=== PATIENT | female | born 1935 | race Caucasian/White ===

== ENCOUNTER 2020-03-04 04:13 | Inpatient (IN) | payer OTHER ==
[2020-03-04 04:50] LABS: BASO % 0.4 % (0-2.0); EOS % 0.2 % (0-4.5); HEMOGLOBIN 11.3 GM/dL (10.7-15.3); MCH 28.8 pg (25.7-33.7); MCHC 31.5 g/dl (32.0-36.0); MEAN CELL VOLUME 91.4 fl (80-96); MEAN PLT VOLUME 8.5 fl (7.5-11.1); MONO % 5.4 % (3.8-10.2); PLATELET COUNT 463 K/MM3 (134-434); RBC 3.94 M/mm3 (3.60-5.2); RDW 16.1 % (11.6-15.6); WHITE BLOOD COUNT 16.9 K/mm3 (4.0-10.0)
[2020-03-04 05:00] LABS: INR 1.1 (0.83-1.09); PROTHROMBIN TIME (PATIENT) 13.5 SEC (9.7-13.0)
[2020-03-04 05:03] LABS: ACTIVATED PTT 31.6 SECONDS (25.2-36.5)
[2020-03-04 05:06] LABS: POTASSIUM 5.5 mmol/L (3.5-5.1)
[2020-03-04 05:07] LABS: VENOUS BASE EXCESS -0.6 mmol/L (-2-2); VENOUS O2 SATURATION 62.6 % (70-80)
[2020-03-04 05:08] LABS: CALCIUM 9.5 mg/dL (8.5-10.1)
[2020-03-04 05:09] LABS: ALBUMIN 2.7 g/dl (3.4-5.0); BLOOD UREA NITROGEN 44.2 mg/dL (7-18)
[2020-03-04 05:10] LABS: VENOUS PCO2 88.7 mmHg (38-52); VENOUS PH 7.154 (7.310-7.410)
[2020-03-04 05:12] LABS: CREATININE 0.6 mg/dL (0.55-1.3)
[2020-03-04 05:13] LABS: BILIRUBIN,TOTAL 0.4 mg/dL (0.2-1)
[2020-03-04 05:14] LABS: TOT PROT 7.6 g/dl (6.4-8.2)
[2020-03-04] MEDS ORDERED: PIPERACILLIN/TAZOB 3.375 GM 3.375 GM in DEXTROSE 5%-WATER - 50 ML IVPB ONE (05:47)
[2020-03-04] MEDS ORDERED: PIPERACILLIN/TAZOB 3.375 GM 3.375 GM/50 ML BAG IVPB ONE (05:58)
[2020-03-04] MEDS: LACTATED RINGERS SOLUTION 1000 ML INFUS.BAG IV ONE ×2 (08:08→09:31)
[2020-03-04] MEDS ORDERED: SODIUM CHLORIDE 1,742 ML IV ONE (08:12)
[2020-03-04] MEDS ORDERED: VANCOMYCIN HCL 1,250 MG in DEXTROSE 5%-WATER - 250 ML IVPB ONE (11:33)
[2020-03-04] MEDS ORDERED: MIDODRINE HCL 5 MG TABLET PO SCH (14:00)
[2020-03-04 14:44] LABS: EPI CELLS 10 /uL (0-25.1); HYALINE CASTS 0 /uL (0-3.1); PH,URINE 8.5 (5.0-8.0); URINE APPEARANCE CLOUDY; URINE BILIRUBIN NEGATIVE (NEGATIVE); URINE COLOR YELLOW; URINE GLUCOSE (UA) NEGATIVE (NEGATIVE); URINE KETONE TRACE (NEGATIVE); URINE LEUK ESTERASE NEGATIVE (NEGATIVE); URINE NITRITE POSITIVE (NEGATIVE); URINE PROTEIN 1+ (NEGATIVE); URINE RBC 5 /uL (0-23.9); URINE WBC 29 /uL (0-25.8)
[2020-03-04] MEDS: INSULIN SLIDING SCALE (NOVOLOG) 1 VIAL SQ SCH ×2 (15:35→18:57)
[2020-03-04 15:45] LABS: URINE BACTERIA 174.9 /uL (0-1359)
[2020-03-04] MEDS ORDERED: ALBUTEROL SO4 2.5/IPRATROPIUM 0.5 INH SOL 3 ML VIAL.NEB. NEB ONE ×3 (15:52→23:09)
[2020-03-04] MEDS ORDERED: METOPROLOL TARTRATE 25 MG TABLET (FP) ONE ×2 (15:52→23:10)
[2020-03-04] MEDS: clonazePAM 0.5 MG TABLET PO SCH (16:00)
[2020-03-04] MEDS: METOPROLOL TARTRATE 25 MG TABLET (FP) PO SCH ×2 (16:00→23:35)
[2020-03-04] MEDS: ALBUTEROL SO4 2.5/IPRATROPIUM 0.5 INH SOL 3 ML VIAL.NEB. NEB SCH ×3 (16:04→23:35)
[2020-03-04] MEDS ORDERED: clonazePAM 0.5 MG TABLET ONE (16:54)
[2020-03-04] MEDS ORDERED: PIPERACILLIN/TAZOB 2.25 GM 2.25 GM/50 ML BAG IVPB ONE ×2 (16:55→16:57)
[2020-03-04] MEDS: PIPERACILLIN/TAZOB 2.25 GM 2.25 GM in DEXTROSE 5%-WATER - 50 ML IVPB SCH ×2 (17:00→18:36)
[2020-03-04] MEDS: MIDODRINE HCL 5 MG TABLET PO SCH (18:36)
[2020-03-04] MEDS ORDERED: CEFEPIME 2 GM/100 ML BAG IVPB ONE (18:37)
[2020-03-04] MEDS: CEFEPIME 2 GM in DEXTROSE 5%-WATER 2 GM/100 ML BAG IVPB SCH (18:57)
[2020-03-04] MEDS ORDERED: QUEtiapine FUMARATE 25 MG TABLET PO SCH (22:00)
[2020-03-04] MEDS ORDERED: QUEtiapine FUMARATE 25 MG TABLET ONE (23:10)
[2020-03-04] MEDS: DOCUSATE NA 100 MG/10 ML UNIT-DOSE CUPS PO SCH (23:35)
[2020-03-05] MEDS: INSULIN SLIDING SCALE (NOVOLOG) 1 VIAL SQ SCH ×7 (01:18→21:40)
[2020-03-05] MEDS ORDERED: PIPERACILLIN/TAZOB 2.25 GM 2.25 GM/50 ML BAG IVPB ONE ×3 (02:25→13:26)
[2020-03-05] MEDS ORDERED: CEFEPIME 2 GM/100 ML BAG IVPB ONE (02:25)
[2020-03-05] MEDS: CEFEPIME 2 GM in DEXTROSE 5%-WATER 2 GM/100 ML BAG IVPB SCH ×3 (03:08→17:49)
[2020-03-05] MEDS: PIPERACILLIN/TAZOB 2.25 GM 2.25 GM in DEXTROSE 5%-WATER - 50 ML IVPB SCH ×3 (05:13→17:48)
[2020-03-05 05:36] LABS: HEMATOCRIT 25.9 % (32.4-45.2); HEMOGLOBIN 8.4 GM/dL (10.7-15.3); MCHC 32.5 g/dl (32.0-36.0); MEAN CELL VOLUME 89.3 fl (80-96); MEAN PLT VOLUME 8.4 fl (7.5-11.1); PLATELET COUNT 359 K/MM3 (134-434); RDW 15.7 % (11.6-15.6); WHITE BLOOD COUNT 9.8 K/mm3 (4.0-10.0)
[2020-03-05 05:55] LABS: POTASSIUM 4.4 mmol/L (3.5-5.1)
[2020-03-05 05:59] LABS: ALBUMIN 2.1 g/dl (3.4-5.0); BLOOD UREA NITROGEN 35.1 mg/dL (7-18); CALCIUM 8.9 mg/dL (8.5-10.1); MAGNESIUM 2.2 mg/dL (1.8-2.4)
[2020-03-05 06:02] LABS: CREATININE 0.6 mg/dL (0.55-1.3)
[2020-03-05 06:04] LABS: BILIRUBIN,TOTAL 0.6 mg/dL (0.2-1); TOT PROT 5.8 g/dl (6.4-8.2)
[2020-03-05] MEDS ORDERED: METOPROLOL TARTRATE 25 MG TABLET (FP) ONE (06:41)
[2020-03-05] MEDS: METOPROLOL TARTRATE 25 MG TABLET (FP) PO SCH ×2 (07:23→13:00)
[2020-03-05] MEDS ORDERED: ENOXAPARIN NA (PORCINE) 40 MG/0.4 ML DISP.SYRIN SQ ONE (08:29)
[2020-03-05] MEDS ORDERED: clonazePAM 0.5 MG TABLET ONE (08:59)
[2020-03-05] MEDS: MIDODRINE HCL 5 MG TABLET PO SCH ×3 (09:09→17:48)
[2020-03-05] MEDS: ALBUTEROL SO4 2.5/IPRATROPIUM 0.5 INH SOL 3 ML VIAL.NEB. NEB SCH ×3 (09:09→19:59)
[2020-03-05] MEDS: ENOXAPARIN NA (PORCINE) 40 MG/0.4 ML DISP.SYRIN SQ SCH (09:09)
[2020-03-05] MEDS: clonazePAM 0.5 MG TABLET PO SCH (09:09)
[2020-03-05] MEDS: DOCUSATE NA 100 MG/10 ML UNIT-DOSE CUPS PO SCH (09:09)
[2020-03-05] MEDS ORDERED: ALBUTEROL SO4 2.5/IPRATROPIUM 0.5 INH SOL 3 ML VIAL.NEB. NEB ONE ×2 (10:58→13:26)
[2020-03-05] MEDS ORDERED: ALBUTEROL SO4 2.5/IPRATROPIUM 0.5 INH SOL 3 ML VIAL.NEB. NEB SCH (16:27)
[2020-03-05] MEDS ORDERED: PIPERACILLIN/TAZOBACTAM 2.25 GM VIAL IVPB ONE (17:02)
[2020-03-05] MEDS ORDERED: DEXTROSE 5%-WATER - 50 ML IVPB ONE (17:02)
[2020-03-05] MEDS: NYSTATIN POWDER 100,000 UNITS/GM - 15 GM TOPICAL POWDER TP SCH ×2 (17:47→21:40)
[2020-03-05] MEDS ORDERED: MIDODRINE HCL 5 MG TABLET PEG SCH (20:55)
[2020-03-05] MEDS: METOPROLOL TARTRATE 25 MG TABLET (FP) PEG SCH (21:40)
[2020-03-05] MEDS: DOCUSATE NA 100 MG/10 ML UNIT-DOSE CUPS PEG SCH (21:40)
[2020-03-05] MEDS: QUEtiapine FUMARATE 25 MG TABLET PEG SCH (21:40)
[2020-03-06] MEDS ORDERED: DEXTROSE 5%-WATER - 50 ML IVPB ONE ×3 (01:10→17:50)
[2020-03-06] MEDS ORDERED: PIPERACILLIN/TAZOBACTAM 2.25 GM VIAL IVPB ONE ×3 (01:10→17:50)
[2020-03-06] MEDS: PIPERACILLIN/TAZOB 2.25 GM 2.25 GM in DEXTROSE 5%-WATER - 50 ML IVPB SCH ×3 (01:21→17:58)
[2020-03-06] MEDS: INSULIN SLIDING SCALE (NOVOLOG) 1 VIAL SQ SCH ×6 (03:02→22:15)
[2020-03-06] MEDS: METOPROLOL TARTRATE 25 MG TABLET (FP) PEG SCH (06:24)
[2020-03-06] MEDS: ALBUTEROL SO4 2.5/IPRATROPIUM 0.5 INH SOL 3 ML VIAL.NEB. NEB SCH ×4 (07:30→19:49)
[2020-03-06 09:10] LABS: HEMOGLOBIN 8.6 GM/dL (10.7-15.3); MCH 29.4 pg (25.7-33.7); MCHC 33.1 g/dl (32.0-36.0); MEAN CELL VOLUME 88.9 fl (80-96); MEAN PLT VOLUME 8.3 fl (7.5-11.1); PLATELET COUNT 403 K/MM3 (134-434); RBC 2.93 M/mm3 (3.60-5.2); WHITE BLOOD COUNT 10.8 K/mm3 (4.0-10.0)
[2020-03-06 09:27] LABS: POTASSIUM 4.1 mmol/L (3.5-5.1)
[2020-03-06 09:28] LABS: BLOOD UREA NITROGEN 40.7 mg/dL (7-18); CALCIUM 8.9 mg/dL (8.5-10.1)
[2020-03-06 09:32] LABS: CREATININE 0.8 mg/dL (0.55-1.3)
[2020-03-06] MEDS: clonazePAM 0.5 MG TABLET PEG SCH (09:53)
[2020-03-06] MEDS: DOCUSATE NA 100 MG/10 ML UNIT-DOSE CUPS PEG SCH ×2 (09:53→22:06)
[2020-03-06] MEDS: ENOXAPARIN NA (PORCINE) 40 MG/0.4 ML DISP.SYRIN SQ SCH (09:54)
[2020-03-06] MEDS ORDERED: INSULIN (NOVOLOG) ASPART 100 UNITS/ML 10ML VIAL ONE (10:04)
[2020-03-06] MEDS: NYSTATIN POWDER 100,000 UNITS/GM - 15 GM TOPICAL POWDER TP SCH ×2 (10:08→22:09)
[2020-03-06] MEDS ORDERED: ACETAMINOPHEN 325 MG TABLET (FP) PO ONE (18:03)
[2020-03-06] MEDS: QUEtiapine FUMARATE 25 MG TABLET PEG SCH (22:07)
[2020-03-07] MEDS ORDERED: DEXTROSE 5%-WATER - 50 ML IVPB ONE ×3 (01:34→17:00)
[2020-03-07] MEDS ORDERED: PIPERACILLIN/TAZOBACTAM 2.25 GM VIAL IVPB ONE ×3 (01:34→17:00)
[2020-03-07] MEDS: PIPERACILLIN/TAZOB 2.25 GM 2.25 GM in DEXTROSE 5%-WATER - 50 ML IVPB SCH ×3 (01:50→17:43)
[2020-03-07] MEDS: INSULIN SLIDING SCALE (NOVOLOG) 1 VIAL SQ SCH (06:38)
[2020-03-07] MEDS: ALBUTEROL SO4 2.5/IPRATROPIUM 0.5 INH SOL 3 ML VIAL.NEB. NEB SCH ×4 (08:17→20:51)
[2020-03-07 09:20] LABS: BASO % 0.5 % (0-2.0); EOS % 2.9 % (0-4.5); HEMATOCRIT 24.9 % (32.4-45.2); HEMOGLOBIN 8.1 GM/dL (10.7-15.3); LYMPH % 13.6 % (8-40); MCH 29.2 pg (25.7-33.7); MCHC 32.5 g/dl (32.0-36.0); MEAN PLT VOLUME 8.3 fl (7.5-11.1); MONO % 6.3 % (3.8-10.2); NEUT % 76.7 % (42.8-82.8); PLATELET COUNT 396 K/MM3 (134-434); RBC 2.77 M/mm3 (3.60-5.2); RDW 16.1 % (11.6-15.6); WHITE BLOOD COUNT 7.7 K/mm3 (4.0-10.0)
[2020-03-07 09:32] LABS: POTASSIUM 4.7 mmol/L (3.5-5.1)
[2020-03-07 09:39] LABS: BLOOD UREA NITROGEN 40.7 mg/dL (7-18)
[2020-03-07 09:42] LABS: CREATININE 0.7 mg/dL (0.55-1.3)
[2020-03-07 09:43] LABS: BILIRUBIN,TOTAL 0.4 mg/dL (0.2-1); TOT PROT 5.7 g/dl (6.4-8.2)
[2020-03-07] MEDS: clonazePAM 0.5 MG TABLET PEG SCH (10:08)
[2020-03-07] MEDS: ENOXAPARIN NA (PORCINE) 40 MG/0.4 ML DISP.SYRIN SQ SCH (10:09)
[2020-03-07] MEDS: DOCUSATE NA 100 MG/10 ML UNIT-DOSE CUPS PEG SCH ×2 (10:09→21:01)
[2020-03-07] MEDS: NYSTATIN POWDER 100,000 UNITS/GM - 15 GM TOPICAL POWDER TP SCH ×2 (10:48→21:02)
[2020-03-07] MEDS ORDERED: FERRIC CARBOXYMALTOSE 750 MG in SODIUM CHLORIDE 250 ML IVPB ONE (11:30)
[2020-03-07] MEDS ORDERED: ACETAMINOPHEN 650 MG/20.3 ML ORAL SOLUTION (CUPS) GT PRN (12:06)
[2020-03-07] MEDS: metFORMIN HCL 500 MG TABLET (FP) GT SCH (16:25)
[2020-03-07 18:47] LABS: BF WBC & OTHER NUCLEATED CELLS 1517 /mm3
[2020-03-07 19:44] LABS: BODY FLUID MACROPHAGES 18 %; BODY FLUID MONOCYTE 5 %
[2020-03-07] MEDS: QUEtiapine FUMARATE 25 MG TABLET PEG SCH (21:02)
[2020-03-08] MEDS ORDERED: PIPERACILLIN/TAZOBACTAM 2.25 GM VIAL IVPB ONE ×3 (01:19→17:15)
[2020-03-08] MEDS ORDERED: DEXTROSE 5%-WATER - 50 ML IVPB ONE ×3 (01:20→17:15)
[2020-03-08] MEDS: PIPERACILLIN/TAZOB 2.25 GM 2.25 GM in DEXTROSE 5%-WATER - 50 ML IVPB SCH ×3 (01:21→17:17)
[2020-03-08] MEDS: metFORMIN HCL 500 MG TABLET (FP) GT SCH ×2 (06:13→17:17)
[2020-03-08] MEDS: ALBUTEROL SO4 2.5/IPRATROPIUM 0.5 INH SOL 3 ML VIAL.NEB. NEB SCH ×4 (07:54→20:47)
[2020-03-08] MEDS: ENOXAPARIN NA (PORCINE) 40 MG/0.4 ML DISP.SYRIN SQ SCH (10:11)
[2020-03-08] MEDS: clonazePAM 0.5 MG TABLET PEG SCH (10:11)
[2020-03-08] MEDS: DOCUSATE NA 100 MG/10 ML UNIT-DOSE CUPS PEG SCH ×2 (10:11→21:45)
[2020-03-08] MEDS: NYSTATIN POWDER 100,000 UNITS/GM - 15 GM TOPICAL POWDER TP SCH ×2 (10:12→21:45)
[2020-03-08 10:15] LABS: BASO % 0.4 % (0-2.0); EOS % 2.4 % (0-4.5); HEMATOCRIT 28.4 % (32.4-45.2); HEMOGLOBIN 9.3 GM/dL (10.7-15.3); LYMPH % 11.6 % (8-40); MCH 29.3 pg (25.7-33.7); MCHC 32.6 g/dl (32.0-36.0); MEAN CELL VOLUME 89.8 fl (80-96); MEAN PLT VOLUME 8.4 fl (7.5-11.1); MONO % 5.3 % (3.8-10.2); NEUT % 80.3 % (42.8-82.8); PLATELET COUNT 461 K/MM3 (134-434); RBC 3.17 M/mm3 (3.60-5.2); RDW 16.3 % (11.6-15.6); WHITE BLOOD COUNT 9.6 K/mm3 (4.0-10.0)
[2020-03-08 11:00] LABS: POTASSIUM 4.8 mmol/L (3.5-5.1)
[2020-03-08 11:26] LABS: BLOOD UREA NITROGEN 32.3 mg/dL (7-18); CALCIUM 9.4 mg/dL (8.5-10.1)
[2020-03-08 11:27] LABS: ALBUMIN 2.3 g/dl (3.4-5.0)
[2020-03-08 11:30] LABS: CREATININE 0.6 mg/dL (0.55-1.3)
[2020-03-08 11:31] LABS: BILIRUBIN,TOTAL 0.3 mg/dL (0.2-1); TOT PROT 6.6 g/dl (6.4-8.2)
[2020-03-08] MEDS ORDERED: PT OWN MED DRAWER 7, Y5N ONE (12:48)
[2020-03-08] MEDS: QUEtiapine FUMARATE 25 MG TABLET PEG SCH (21:45)
[2020-03-09] MEDS ORDERED: DEXTROSE 5%-WATER - 50 ML IVPB ONE ×3 (01:09→18:01)
[2020-03-09] MEDS ORDERED: PIPERACILLIN/TAZOBACTAM 2.25 GM VIAL IVPB ONE ×3 (01:09→18:00)
[2020-03-09] MEDS: PIPERACILLIN/TAZOB 2.25 GM 2.25 GM in DEXTROSE 5%-WATER - 50 ML IVPB SCH ×3 (01:14→18:23)
[2020-03-09] MEDS: metFORMIN HCL 500 MG TABLET (FP) GT SCH ×2 (06:03→18:23)
[2020-03-09] MEDS: ALBUTEROL SO4 2.5/IPRATROPIUM 0.5 INH SOL 3 ML VIAL.NEB. NEB SCH ×4 (08:04→20:34)
[2020-03-09 09:08] LABS: POTASSIUM 5.2 mmol/L (3.5-5.1)
[2020-03-09 09:15] LABS: ALBUMIN 2.2 g/dl (3.4-5.0); BASO % 1.2 % (0-2.0); BLOOD UREA NITROGEN 30.3 mg/dL (7-18); CALCIUM 9.1 mg/dL (8.5-10.1); EOS % 2.1 % (0-4.5); HEMATOCRIT 26.5 % (32.4-45.2); HEMOGLOBIN 8.7 GM/dL (10.7-15.3); LYMPH % 10.5 % (8-40); MCH 29.1 pg (25.7-33.7); MCHC 32.6 g/dl (32.0-36.0); MEAN CELL VOLUME 89.2 fl (80-96); MEAN PLT VOLUME 8.9 fl (7.5-11.1); NEUT % 80.2 % (42.8-82.8); PLATELET COUNT 481 K/MM3 (134-434); RBC 2.97 M/mm3 (3.60-5.2); RDW 16.1 % (11.6-15.6); WHITE BLOOD COUNT 11.3 K/mm3 (4.0-10.0)
[2020-03-09 09:19] LABS: CREATININE 0.7 mg/dL (0.55-1.3)
[2020-03-09 09:20] LABS: TOT PROT 6.2 g/dl (6.4-8.2)
[2020-03-09 09:23] LABS: BILIRUBIN,TOTAL 0.2 mg/dL (0.2-1)
[2020-03-09] MEDS: ENOXAPARIN NA (PORCINE) 40 MG/0.4 ML DISP.SYRIN SQ SCH (09:40)
[2020-03-09] MEDS: DOCUSATE NA 100 MG/10 ML UNIT-DOSE CUPS PEG SCH ×2 (09:40→23:18)
[2020-03-09] MEDS: clonazePAM 0.5 MG TABLET PEG SCH (09:40)
[2020-03-09] MEDS: NYSTATIN POWDER 100,000 UNITS/GM - 15 GM TOPICAL POWDER TP SCH ×2 (09:41→23:19)
[2020-03-09] MEDS: QUEtiapine FUMARATE 25 MG TABLET PEG SCH (23:18)
[2020-03-10] MEDS ORDERED: PIPERACILLIN/TAZOBACTAM 2.25 GM VIAL IVPB ONE ×3 (02:18→16:36)
[2020-03-10] MEDS: PIPERACILLIN/TAZOB 2.25 GM 2.25 GM in DEXTROSE 5%-WATER - 50 ML IVPB SCH ×3 (02:19→17:17)
[2020-03-10] MEDS ORDERED: DEXTROSE 5%-WATER - 50 ML IVPB ONE ×3 (02:19→16:36)
[2020-03-10] MEDS: metFORMIN HCL 500 MG TABLET (FP) GT SCH ×2 (06:04→17:17)
[2020-03-10] MEDS: ALBUTEROL SO4 2.5/IPRATROPIUM 0.5 INH SOL 3 ML VIAL.NEB. NEB SCH ×3 (08:25→15:14)
[2020-03-10 08:58] LABS: BASO % 0.6 % (0-2.0); HEMATOCRIT 25.6 % (32.4-45.2); HEMOGLOBIN 8.7 GM/dL (10.7-15.3); LYMPH % 10.2 % (8-40); MCH 29.8 pg (25.7-33.7); MCHC 33.8 g/dl (32.0-36.0); MEAN CELL VOLUME 88.1 fl (80-96); MEAN PLT VOLUME 8.4 fl (7.5-11.1); NEUT % 80.2 % (42.8-82.8); PLATELET COUNT 518 K/MM3 (134-434); RBC 2.91 M/mm3 (3.60-5.2); RDW 15.8 % (11.6-15.6); WHITE BLOOD COUNT 10.4 K/mm3 (4.0-10.0)
[2020-03-10 09:22] LABS: POTASSIUM 5.1 mmol/L (3.5-5.1)
[2020-03-10 09:30] LABS: CALCIUM 9.1 mg/dL (8.5-10.1)
[2020-03-10 09:31] LABS: ALBUMIN 2.2 g/dl (3.4-5.0); BLOOD UREA NITROGEN 32.3 mg/dL (7-18)
[2020-03-10 09:33] LABS: BILIRUBIN,TOTAL 0.3 mg/dL (0.2-1); TOT PROT 5.9 g/dl (6.4-8.2)
[2020-03-10 09:34] LABS: CREATININE 0.7 mg/dL (0.55-1.3)
[2020-03-10] MEDS: ENOXAPARIN NA (PORCINE) 40 MG/0.4 ML DISP.SYRIN SQ SCH (11:48)
[2020-03-10] MEDS: clonazePAM 0.5 MG TABLET PEG SCH (11:48)
[2020-03-10] MEDS: DOCUSATE NA 100 MG/10 ML UNIT-DOSE CUPS PEG SCH ×2 (11:48→21:30)
[2020-03-10] MEDS: NYSTATIN POWDER 100,000 UNITS/GM - 15 GM TOPICAL POWDER TP SCH ×2 (11:49→21:30)
[2020-03-10 13:09] LABS: BODY FLUID ALBUMIN 1.9 g/dL (Not Estab.)
[2020-03-10] MEDS: QUEtiapine FUMARATE 25 MG TABLET PEG SCH (21:30)
[2020-03-11] MEDS ORDERED: PIPERACILLIN/TAZOBACTAM 2.25 GM VIAL IVPB ONE ×2 (01:06→08:31)
[2020-03-11] MEDS ORDERED: DEXTROSE 5%-WATER - 50 ML IVPB ONE ×3 (01:06→17:33)
[2020-03-11] MEDS: PIPERACILLIN/TAZOB 2.25 GM 2.25 GM in DEXTROSE 5%-WATER - 50 ML IVPB SCH ×2 (01:09→09:06)
[2020-03-11] MEDS: metFORMIN HCL 500 MG TABLET (FP) GT SCH ×2 (06:10→17:32)
[2020-03-11] MEDS: ENOXAPARIN NA (PORCINE) 40 MG/0.4 ML DISP.SYRIN SQ SCH (09:06)
[2020-03-11] MEDS: DOCUSATE NA 100 MG/10 ML UNIT-DOSE CUPS PEG SCH ×2 (09:06→21:39)
[2020-03-11] MEDS: clonazePAM 0.5 MG TABLET PEG SCH (09:07)
[2020-03-11] MEDS: NYSTATIN POWDER 100,000 UNITS/GM - 15 GM TOPICAL POWDER TP SCH ×2 (09:07→21:39)
[2020-03-11] MEDS ORDERED: PIPERACILLIN/TAZOBACTAM 3.375 GM VIAL IVPB ONE (17:33)
[2020-03-11] MEDS: PIPERACILLIN/TAZOB 3.375 GM 3.375 GM in DEXTROSE 5%-WATER - 50 ML IVPB SCH (17:33)
[2020-03-11] MEDS: QUEtiapine FUMARATE 25 MG TABLET PEG SCH (21:39)
[2020-03-12 01:08] LABS: BASO % 0.4 % (0-2.0); EOS % 0.5 % (0-4.5); HEMOGLOBIN 9.7 GM/dL (10.7-15.3); LYMPH % 7.6 % (8-40); MCH 28.8 pg (25.7-33.7); MCHC 32.4 g/dl (32.0-36.0); MEAN CELL VOLUME 88.7 fl (80-96); MEAN PLT VOLUME 8.5 fl (7.5-11.1); MONO % 4.5 % (3.8-10.2); PLATELET COUNT 626 K/MM3 (134-434); RBC 3.38 M/mm3 (3.60-5.2); RDW 16.3 % (11.6-15.6)
[2020-03-12 01:26] LABS: CHLORIDE 97 mmol/L (98-107); POTASSIUM 5.2 mmol/L (3.5-5.1); SODIUM 134 mmol/L (136-145)
[2020-03-12 01:28] LABS: ALBUMIN 2.4 g/dl (3.4-5.0); ANION GAP 9 MMOL/L (8-16); BLOOD UREA NITROGEN 34.5 mg/dL (7-18); CALCIUM 9.5 mg/dL (8.5-10.1); CO2 28 mmol/L (21-32)
[2020-03-12 01:29] LABS: GLUCOSE,RANDOM 295 mg/dL (74-106)
[2020-03-12 01:31] LABS: SGOT/AST 30 U/L (15-37); SGPT/ALT 56 U/L (13-61)
[2020-03-12 01:32] LABS: CREATININE 0.8 mg/dL (0.55-1.3)
[2020-03-12 01:33] LABS: BILIRUBIN,TOTAL 0.4 mg/dL (0.2-1); TOT PROT 6.9 g/dl (6.4-8.2)
[2020-03-12 01:39] LABS: ALK PHOS 210 U/L (45-117)
[2020-03-12] MEDS ORDERED: SODIUM CHLORIDE 500 ML IV STA ×2 (02:06→04:03)
[2020-03-12 02:12] LABS: ANISOCYTOSIS 2+; MACROCYTOSIS 0; PLATELET ESTIMATE INCREASED
[2020-03-12] MEDS: MUPIROCIN 2% TOPICAL OINTMENT FOR DECOLONIZATION NS SCH ×3 (02:48→22:14)
[2020-03-12] MEDS ORDERED: VANCOMYCIN 1 GRAM (PRE-DOCKED) 1,000 MG/250 ML BAG IVPB ONE (03:00)
[2020-03-12] MEDS ORDERED: DEXTROSE 5%-WATER - 50 ML IVPB ONE ×2 (03:02→09:36)
[2020-03-12] MEDS ORDERED: PIPERACILLIN/TAZOBACTAM 3.375 GM VIAL IVPB ONE ×2 (03:02→09:36)
[2020-03-12] MEDS: PIPERACILLIN/TAZOB 3.375 GM 3.375 GM in DEXTROSE 5%-WATER - 50 ML IVPB SCH ×3 (03:05→10:22)
[2020-03-12] MEDS ORDERED: SODIUM CHLORIDE 250 ML IV STA (05:09)
[2020-03-12] MEDS ORDERED: SODIUM CHLORIDE 1,000 ML IV SCH (05:45)
[2020-03-12 06:28] LABS: EPI CELLS 13 /uL (0-25.1); HYALINE CASTS 2 /uL (0-3.1); URINE APPEARANCE CLEAR; URINE BACTERIA 13 /uL (0-1359); URINE BILIRUBIN NEGATIVE (NEGATIVE); URINE COLOR YELLOW; URINE GLUCOSE (UA) 2+ (NEGATIVE); URINE KETONE NEGATIVE (NEGATIVE); URINE LEUK ESTERASE NEGATIVE (NEGATIVE); URINE NITRITE NEGATIVE (NEGATIVE); URINE PROTEIN 1+ (NEGATIVE); URINE RBC 13 /uL (0-23.9); URINE UROBILINOGEN 0.2 mg/dL (0.2-1.0); URINE WBC 3 /uL (0-25.8)
[2020-03-12] MEDS: NOREPINEPHRINE BITARTRATE 8,000 MCG/500 ML BAG IVPB SCH (06:28)
[2020-03-12] MEDS: ENOXAPARIN NA (PORCINE) 40 MG/0.4 ML DISP.SYRIN SQ SCH (10:22)
[2020-03-12] MEDS: clonazePAM 0.5 MG TABLET PEG SCH (10:23)
[2020-03-12] MEDS: DOCUSATE NA 100 MG/10 ML UNIT-DOSE CUPS PEG SCH ×2 (10:23→22:14)
[2020-03-12] MEDS: NYSTATIN POWDER 100,000 UNITS/GM - 15 GM TOPICAL POWDER TP SCH ×2 (10:43→22:14)
[2020-03-12] MEDS: MEROPENEM 1 GM in DEXTROSE 5%-WATER 100 ML IVPB SCH (16:43)
[2020-03-12] MEDS ORDERED: DEXTROSE 5%-WATER 100 ML IVPB ONE (16:45)
[2020-03-12] MEDS ORDERED: MEROPENEM 1 GM VIAL (RESTRICTED TO ID) IVPB ONE (16:45)
[2020-03-12] MEDS: CHLORHEXIDINE GLUCONATE 4% CLEANSER FOR DECOLONIZATION TP SCH (22:14)
[2020-03-12] MEDS: QUEtiapine FUMARATE 25 MG TABLET PEG SCH (22:15)
[2020-03-12] MEDS ORDERED: SODIUM CHLORIDE 0.9% 500 ML INFUS.BAG IV ONE (23:27)
[2020-03-13] MEDS ORDERED: SODIUM CHLORIDE 1,000 ML IV STA (01:09)
[2020-03-13] MEDS ORDERED: SODIUM CHLORIDE 1,000 ML IV SCH (01:10)
[2020-03-13] MEDS ORDERED: MEROPENEM 1 GM VIAL (RESTRICTED TO ID) IVPB ONE ×2 (05:28→13:53)
[2020-03-13] MEDS ORDERED: DEXTROSE 5%-WATER 100 ML IVPB ONE ×2 (05:28→13:53)
[2020-03-13] MEDS: MEROPENEM 1 GM in DEXTROSE 5%-WATER 100 ML IVPB SCH ×2 (05:31→16:11)
[2020-03-13] MEDS: NOREPINEPHRINE BITARTRATE 8,000 MCG/500 ML BAG IVPB SCH (05:32)
[2020-03-13] MEDS: VANCOMYCIN 1 GRAM (PRE-DOCKED) 1,000 MG/250 ML BAG IVPB SCH (05:40)
[2020-03-13] MEDS: ENOXAPARIN NA (PORCINE) 40 MG/0.4 ML DISP.SYRIN SQ SCH (10:37)
[2020-03-13] MEDS: MUPIROCIN 2% TOPICAL OINTMENT FOR DECOLONIZATION NS SCH ×2 (10:39→21:44)
[2020-03-13] MEDS: clonazePAM 0.5 MG TABLET PEG SCH (10:39)
[2020-03-13] MEDS: DOCUSATE NA 100 MG/10 ML UNIT-DOSE CUPS PEG SCH ×2 (10:39→21:45)
[2020-03-13] MEDS: NYSTATIN POWDER 100,000 UNITS/GM - 15 GM TOPICAL POWDER TP SCH ×2 (10:39→21:44)
[2020-03-13 11:59] LABS: BASO % 0.5 % (0-2.0); EOS % 1.9 % (0-4.5); HEMATOCRIT 25.7 % (32.4-45.2); HEMOGLOBIN 8.5 GM/dL (10.7-15.3); LYMPH % 7.8 % (8-40); MCH 29.4 pg (25.7-33.7); MCHC 33.1 g/dl (32.0-36.0); MEAN CELL VOLUME 88.6 fl (80-96); MEAN PLT VOLUME 7.8 fl (7.5-11.1); MONO % 8.3 % (3.8-10.2); NEUT % 81.5 % (42.8-82.8); PLATELET COUNT 488 K/MM3 (134-434); RDW 16.7 % (11.6-15.6); WHITE BLOOD COUNT 11.9 K/mm3 (4.0-10.0)
[2020-03-13 12:21] LABS: POTASSIUM 4.1 mmol/L (3.5-5.1)
[2020-03-13 12:22] LABS: CALCIUM 8.3 mg/dL (8.5-10.1)
[2020-03-13 12:23] LABS: ALBUMIN 1.9 g/dl (3.4-5.0); BLOOD UREA NITROGEN 20.2 mg/dL (7-18)
[2020-03-13 12:26] LABS: CREATININE 0.4 mg/dL (0.55-1.3); PHOSPHOROUS 2.3 mg/dL (2.5-4.9)
[2020-03-13 12:28] LABS: BILIRUBIN,TOTAL 0.3 mg/dL (0.2-1); TOT PROT 5.8 g/dl (6.4-8.2)
[2020-03-13] MEDS ORDERED: METOPROLOL TARTRATE 5 MG/5 ML VIAL IVPUSH ONE (14:57)
[2020-03-13] MEDS: METOPROLOL TARTRATE 25 MG TABLET (FP) PO SCH ×2 (16:19→21:45)
[2020-03-13] MEDS: ACETAMINOPHEN 650 MG/20.3 ML ORAL SOLUTION (CUPS) GT PRN (16:28)
[2020-03-13] MEDS: CHLORHEXIDINE GLUCONATE 4% CLEANSER FOR DECOLONIZATION TP SCH (21:44)
[2020-03-13] MEDS: QUEtiapine FUMARATE 25 MG TABLET PEG SCH (21:45)
[2020-03-14] MEDS ORDERED: DEXTROSE 5%-WATER 100 ML IVPB ONE ×2 (03:03→13:20)
[2020-03-14] MEDS ORDERED: MEROPENEM 1 GM VIAL (RESTRICTED TO ID) IVPB ONE ×2 (03:03→13:20)
[2020-03-14] MEDS: MEROPENEM 1 GM in DEXTROSE 5%-WATER 100 ML IVPB SCH ×2 (03:08→16:19)
[2020-03-14] MEDS: VANCOMYCIN 1 GRAM (PRE-DOCKED) 1,000 MG/250 ML BAG IVPB SCH (04:29)
[2020-03-14] MEDS: METOPROLOL TARTRATE 25 MG TABLET (FP) PO SCH (06:29)
[2020-03-14] MEDS: NYSTATIN POWDER 100,000 UNITS/GM - 15 GM TOPICAL POWDER TP SCH ×2 (10:17→21:59)
[2020-03-14] MEDS: MUPIROCIN 2% TOPICAL OINTMENT FOR DECOLONIZATION NS SCH ×2 (10:18→21:59)
[2020-03-14] MEDS: clonazePAM 0.5 MG TABLET PEG SCH (10:18)
[2020-03-14] MEDS: DOCUSATE NA 100 MG/10 ML UNIT-DOSE CUPS PEG SCH ×2 (10:20→21:59)
[2020-03-14] MEDS: ENOXAPARIN NA (PORCINE) 40 MG/0.4 ML DISP.SYRIN SQ SCH (10:20)
[2020-03-14] MEDS: ACETAMINOPHEN 650 MG/20.3 ML ORAL SOLUTION (CUPS) GT PRN ×2 (10:21→17:19)
[2020-03-14] MEDS: NOREPINEPHRINE BITARTRATE 8,000 MCG/500 ML BAG IVPB SCH (17:17)
[2020-03-14] MEDS: QUEtiapine FUMARATE 25 MG TABLET PEG SCH (21:59)
[2020-03-14] MEDS: CHLORHEXIDINE GLUCONATE 4% CLEANSER FOR DECOLONIZATION TP SCH (21:59)
[2020-03-15] MEDS ORDERED: MEROPENEM 1 GM VIAL (RESTRICTED TO ID) IVPB ONE ×2 (00:23→16:53)
[2020-03-15] MEDS ORDERED: DEXTROSE 5%-WATER 100 ML IVPB ONE ×2 (00:23→16:54)
[2020-03-15] MEDS: MEROPENEM 1 GM in DEXTROSE 5%-WATER 100 ML IVPB SCH ×2 (03:00→16:54)
[2020-03-15] MEDS: VANCOMYCIN 1 GRAM (PRE-DOCKED) 1,000 MG/250 ML BAG IVPB SCH (05:27)
[2020-03-15] MEDS: NOREPINEPHRINE BITARTRATE 8,000 MCG/500 ML BAG IVPB SCH (05:28)
[2020-03-15] MEDS: MUPIROCIN 2% TOPICAL OINTMENT FOR DECOLONIZATION NS SCH ×2 (10:47→23:35)
[2020-03-15] MEDS: DOCUSATE NA 100 MG/10 ML UNIT-DOSE CUPS PEG SCH ×2 (10:47→23:30)
[2020-03-15] MEDS: NYSTATIN POWDER 100,000 UNITS/GM - 15 GM TOPICAL POWDER TP SCH (10:47)
[2020-03-15] MEDS: ENOXAPARIN NA (PORCINE) 40 MG/0.4 ML DISP.SYRIN SQ SCH (10:48)
[2020-03-15] MEDS: clonazePAM 0.5 MG TABLET PEG SCH (10:48)
[2020-03-16] MEDS: QUEtiapine FUMARATE 25 MG TABLET PEG SCH ×2 (00:10→22:09)
[2020-03-16] MEDS ORDERED: MEROPENEM 1 GM VIAL (RESTRICTED TO ID) IVPB ONE ×2 (00:19→15:40)
[2020-03-16] MEDS ORDERED: DEXTROSE 5%-WATER 100 ML IVPB ONE ×2 (00:19→15:40)
[2020-03-16] MEDS: NYSTATIN POWDER 100,000 UNITS/GM - 15 GM TOPICAL POWDER TP SCH ×3 (01:18→22:10)
[2020-03-16] MEDS: CHLORHEXIDINE GLUCONATE 4% CLEANSER FOR DECOLONIZATION TP SCH (01:18)
[2020-03-16] MEDS: MEROPENEM 1 GM in DEXTROSE 5%-WATER 100 ML IVPB SCH ×2 (04:00→15:52)
[2020-03-16] MEDS: NOREPINEPHRINE BITARTRATE 8,000 MCG/500 ML BAG IVPB SCH (06:12)
[2020-03-16] MEDS: VANCOMYCIN 1 GRAM (PRE-DOCKED) 1,000 MG/250 ML BAG IVPB SCH (06:12)
[2020-03-16] MEDS ORDERED: NOREPINEPHRINE BITARTRATE 8,000 MCG/500 ML BAG IVPB SCH (06:47)
[2020-03-16] MEDS: DOCUSATE NA 100 MG/10 ML UNIT-DOSE CUPS PEG SCH ×2 (09:36→22:09)
[2020-03-16] MEDS: clonazePAM 0.5 MG TABLET PEG SCH (09:36)
[2020-03-16] MEDS: ENOXAPARIN NA (PORCINE) 40 MG/0.4 ML DISP.SYRIN SQ SCH (09:36)
[2020-03-16] MEDS ORDERED: MUPIROCIN 2% TOPICAL OINTMENT FOR DECOLONIZATION NS SCH (10:00)
[2020-03-16] MEDS ORDERED: CHLORHEXIDINE GLUCONATE 4% CLEANSER FOR DECOLONIZATION TP SCH (22:00)
[2020-03-17] MEDS ORDERED: MEROPENEM 1 GM VIAL (RESTRICTED TO ID) IVPB ONE ×2 (03:01→14:14)
[2020-03-17] MEDS ORDERED: DEXTROSE 5%-WATER 100 ML IVPB ONE ×2 (03:01→14:14)
[2020-03-17] MEDS: MEROPENEM 1 GM in DEXTROSE 5%-WATER 100 ML IVPB SCH ×2 (03:29→15:42)
[2020-03-17] MEDS ORDERED: VANCOMYCIN 1 GRAM (PRE-DOCKED) 1,000 MG/250 ML BAG IVPB SCH (05:00)
[2020-03-17] MEDS: clonazePAM 0.5 MG TABLET PEG SCH (09:55)
[2020-03-17] MEDS: DOCUSATE NA 100 MG/10 ML UNIT-DOSE CUPS PEG SCH ×2 (09:55→22:30)
[2020-03-17] MEDS: NYSTATIN POWDER 100,000 UNITS/GM - 15 GM TOPICAL POWDER TP SCH ×2 (09:56→22:30)
[2020-03-17] MEDS: ENOXAPARIN NA (PORCINE) 40 MG/0.4 ML DISP.SYRIN SQ SCH (09:56)
[2020-03-17] MEDS: QUEtiapine FUMARATE 25 MG TABLET PEG SCH (22:30)
[2020-03-18] MEDS ORDERED: MEROPENEM 1 GM VIAL (RESTRICTED TO ID) IVPB ONE ×2 (04:09→15:16)
[2020-03-18] MEDS ORDERED: DEXTROSE 5%-WATER 100 ML IVPB ONE ×2 (04:09→15:17)
[2020-03-18] MEDS: MEROPENEM 1 GM in DEXTROSE 5%-WATER 100 ML IVPB SCH ×2 (04:16→15:20)
[2020-03-18 08:30] LABS: POTASSIUM 5.1 mmol/L (3.5-5.1)
[2020-03-18 08:36] LABS: BLOOD UREA NITROGEN 32.5 mg/dL (7-18); CALCIUM 8.7 mg/dL (8.5-10.1)
[2020-03-18 08:40] LABS: CREATININE 0.5 mg/dL (0.55-1.3)
[2020-03-18 08:41] LABS: BILIRUBIN,TOTAL 0.7 mg/dL (0.2-1)
[2020-03-18 08:42] LABS: TOT PROT 5.8 g/dl (6.4-8.2)
[2020-03-18 08:52] LABS: BASO % 0.8 % (0-2.0); EOS % 2.8 % (0-4.5); HEMATOCRIT 27.7 % (32.4-45.2); HEMOGLOBIN 9.3 GM/dL (10.7-15.3); LYMPH % 12.1 % (8-40); MCH 29.9 pg (25.7-33.7); MCHC 33.5 g/dl (32.0-36.0); MEAN CELL VOLUME 89.3 fl (80-96); MEAN PLT VOLUME 8.3 fl (7.5-11.1); NEUT % 74.3 % (42.8-82.8); PLATELET COUNT 510 K/MM3 (134-434); RDW 16.2 % (11.6-15.6)
[2020-03-18] MEDS: DOCUSATE NA 100 MG/10 ML UNIT-DOSE CUPS PEG SCH ×2 (09:58→22:35)
[2020-03-18] MEDS: clonazePAM 0.5 MG TABLET PEG SCH (09:59)
[2020-03-18] MEDS: NYSTATIN POWDER 100,000 UNITS/GM - 15 GM TOPICAL POWDER TP SCH ×2 (09:59→22:35)
[2020-03-18] MEDS: ENOXAPARIN NA (PORCINE) 40 MG/0.4 ML DISP.SYRIN SQ SCH (09:59)
[2020-03-18] MEDS: QUEtiapine FUMARATE 25 MG TABLET PEG SCH (22:35)
[2020-03-19] MEDS ORDERED: DEXTROSE 5%-WATER 100 ML IVPB ONE ×2 (04:33→17:41)
[2020-03-19] MEDS ORDERED: MEROPENEM 1 GM VIAL (RESTRICTED TO ID) IVPB ONE ×2 (04:33→17:41)
[2020-03-19] MEDS: MEROPENEM 1 GM in DEXTROSE 5%-WATER 100 ML IVPB SCH ×2 (04:36→17:58)
[2020-03-19] MEDS: DOCUSATE NA 100 MG/10 ML UNIT-DOSE CUPS PEG SCH ×2 (10:25→22:30)
[2020-03-19] MEDS: ENOXAPARIN NA (PORCINE) 40 MG/0.4 ML DISP.SYRIN SQ SCH (10:25)
[2020-03-19] MEDS: clonazePAM 0.5 MG TABLET PEG SCH (10:25)
[2020-03-19] MEDS: NYSTATIN POWDER 100,000 UNITS/GM - 15 GM TOPICAL POWDER TP SCH ×2 (10:26→22:30)
[2020-03-19] MEDS: QUEtiapine FUMARATE 25 MG TABLET PEG SCH (22:30)
[2020-03-20] MEDS ORDERED: MEROPENEM 1 GM VIAL (RESTRICTED TO ID) IVPB ONE ×2 (04:10→15:31)
[2020-03-20] MEDS ORDERED: DEXTROSE 5%-WATER 100 ML IVPB ONE ×2 (04:10→15:31)
[2020-03-20] MEDS: MEROPENEM 1 GM in DEXTROSE 5%-WATER 100 ML IVPB SCH ×2 (04:12→16:26)
[2020-03-20] MEDS: ENOXAPARIN NA (PORCINE) 40 MG/0.4 ML DISP.SYRIN SQ SCH (10:18)
[2020-03-20] MEDS: NYSTATIN POWDER 100,000 UNITS/GM - 15 GM TOPICAL POWDER TP SCH ×2 (11:30→22:20)
[2020-03-20] MEDS: clonazePAM 0.5 MG TABLET PEG SCH (11:30)
[2020-03-20] MEDS: DOCUSATE NA 100 MG/10 ML UNIT-DOSE CUPS PEG SCH ×2 (11:30→22:20)
[2020-03-20] MEDS: QUEtiapine FUMARATE 25 MG TABLET PEG SCH (22:20)
[2020-03-21] MEDS ORDERED: DEXTROSE 5%-WATER 100 ML IVPB ONE ×2 (03:29→16:13)
[2020-03-21] MEDS ORDERED: MEROPENEM 1 GM VIAL (RESTRICTED TO ID) IVPB ONE ×2 (03:29→16:13)
[2020-03-21] MEDS: MEROPENEM 1 GM in DEXTROSE 5%-WATER 100 ML IVPB SCH ×2 (03:59→16:22)
[2020-03-21] MEDS: ENOXAPARIN NA (PORCINE) 40 MG/0.4 ML DISP.SYRIN SQ SCH (09:18)
[2020-03-21] MEDS: DOCUSATE NA 100 MG/10 ML UNIT-DOSE CUPS PEG SCH ×3 (09:18→21:13)
[2020-03-21] MEDS: clonazePAM 0.5 MG TABLET PEG SCH (09:20)
[2020-03-21] MEDS: NYSTATIN POWDER 100,000 UNITS/GM - 15 GM TOPICAL POWDER TP SCH ×2 (09:20→21:13)
[2020-03-21] MEDS: QUEtiapine FUMARATE 25 MG TABLET PEG SCH (21:14)
[2020-03-22] MEDS ORDERED: DEXTROSE 5%-WATER 100 ML IVPB ONE ×2 (02:47→15:45)
[2020-03-22] MEDS ORDERED: MEROPENEM 1 GM VIAL (RESTRICTED TO ID) IVPB ONE ×2 (02:47→15:45)
[2020-03-22] MEDS: MEROPENEM 1 GM in DEXTROSE 5%-WATER 100 ML IVPB SCH ×2 (03:29→15:47)
[2020-03-22] MEDS: AMINO ACIDS/PROTEIN HYDROLYS 30 ML LIQUID.PKT PEG SCH (11:18)
[2020-03-22] MEDS: ENOXAPARIN NA (PORCINE) 40 MG/0.4 ML DISP.SYRIN SQ SCH (11:18)
[2020-03-22] MEDS: clonazePAM 0.5 MG TABLET PEG SCH (11:18)
[2020-03-22] MEDS: DOCUSATE NA 100 MG/10 ML UNIT-DOSE CUPS PEG SCH ×2 (11:19→23:55)
[2020-03-22] MEDS: NYSTATIN POWDER 100,000 UNITS/GM - 15 GM TOPICAL POWDER TP SCH ×2 (11:20→23:55)
[2020-03-22] MEDS: QUEtiapine FUMARATE 25 MG TABLET PEG SCH (23:55)
[2020-03-23] MEDS ORDERED: DEXTROSE 5%-WATER 100 ML IVPB ONE ×2 (03:00→18:29)
[2020-03-23] MEDS ORDERED: MEROPENEM 1 GM VIAL (RESTRICTED TO ID) IVPB ONE ×2 (03:00→18:29)
[2020-03-23] MEDS: MEROPENEM 1 GM in DEXTROSE 5%-WATER 100 ML IVPB SCH ×2 (04:48→18:27)
[2020-03-23] MEDS: DOCUSATE NA 100 MG/10 ML UNIT-DOSE CUPS PEG SCH ×2 (11:09→22:20)
[2020-03-23] MEDS: AMINO ACIDS/PROTEIN HYDROLYS 30 ML LIQUID.PKT PEG SCH (11:09)
[2020-03-23] MEDS: NYSTATIN POWDER 100,000 UNITS/GM - 15 GM TOPICAL POWDER TP SCH ×2 (11:09→22:21)
[2020-03-23] MEDS: clonazePAM 0.25 MG ODT TABLETS GT SCH ×2 (13:01→23:01)
[2020-03-23] MEDS: ENOXAPARIN NA (PORCINE) 40 MG/0.4 ML DISP.SYRIN SQ SCH (13:02)
[2020-03-23] MEDS: QUEtiapine FUMARATE 25 MG TABLET PEG SCH (22:21)
[2020-03-24] MEDS ORDERED: MEROPENEM 1 GM VIAL (RESTRICTED TO ID) IVPB ONE ×3 (01:52→17:35)
[2020-03-24] MEDS ORDERED: DEXTROSE 5%-WATER 100 ML IVPB ONE ×3 (01:52→17:36)
[2020-03-24] MEDS: MEROPENEM 1 GM in DEXTROSE 5%-WATER 100 ML IVPB SCH ×3 (01:58→17:38)
[2020-03-24] MEDS: AMINO ACIDS/PROTEIN HYDROLYS 30 ML LIQUID.PKT PEG SCH (09:31)
[2020-03-24] MEDS: ENOXAPARIN NA (PORCINE) 40 MG/0.4 ML DISP.SYRIN SQ SCH (09:31)
[2020-03-24] MEDS: DOCUSATE NA 100 MG/10 ML UNIT-DOSE CUPS PEG SCH ×2 (09:31→21:59)
[2020-03-24] MEDS: NYSTATIN POWDER 100,000 UNITS/GM - 15 GM TOPICAL POWDER TP SCH ×2 (09:32→21:59)
[2020-03-24] MEDS: clonazePAM 0.25 MG ODT TABLETS GT SCH ×2 (12:36→23:04)
[2020-03-24] MEDS: QUEtiapine FUMARATE 25 MG TABLET PEG SCH (21:59)
[2020-03-25] MEDS ORDERED: MEROPENEM 1 GM VIAL (RESTRICTED TO ID) IVPB ONE ×3 (01:17→17:10)
[2020-03-25] MEDS ORDERED: DEXTROSE 5%-WATER 100 ML IVPB ONE ×3 (01:17→17:10)
[2020-03-25] MEDS: MEROPENEM 1 GM in DEXTROSE 5%-WATER 100 ML IVPB SCH ×3 (01:31→17:16)
[2020-03-25 09:53] LABS: HEMATOCRIT 25.2 % (32.4-45.2); HEMOGLOBIN 8.5 GM/dL (10.7-15.3); MCH 29.3 pg (25.7-33.7); MCHC 33.7 g/dl (32.0-36.0); MEAN CELL VOLUME 86.9 fl (80-96); MEAN PLT VOLUME 8.6 fl (7.5-11.1); PLATELET COUNT 392 K/MM3 (134-434); RDW 16.1 % (11.6-15.6); WHITE BLOOD COUNT 6.7 K/mm3 (4.0-10.0)
[2020-03-25 10:12] LABS: POTASSIUM 5.3 mmol/L (3.5-5.1)
[2020-03-25 10:17] LABS: ALBUMIN 1.8 g/dl (3.4-5.0); BLOOD UREA NITROGEN 46.4 mg/dL (7-18)
[2020-03-25 10:19] LABS: CALCIUM 8.6 mg/dL (8.5-10.1); CREATININE 0.5 mg/dL (0.55-1.3)
[2020-03-25 10:21] LABS: BILIRUBIN,TOTAL 1.3 mg/dL (0.2-1); TOT PROT 5.6 g/dl (6.4-8.2)
[2020-03-25] MEDS: AMINO ACIDS/PROTEIN HYDROLYS 30 ML LIQUID.PKT PEG SCH (10:52)
[2020-03-25] MEDS: NYSTATIN POWDER 100,000 UNITS/GM - 15 GM TOPICAL POWDER TP SCH ×2 (10:53→22:00)
[2020-03-25] MEDS: ENOXAPARIN NA (PORCINE) 40 MG/0.4 ML DISP.SYRIN SQ SCH (10:53)
[2020-03-25] MEDS: DOCUSATE NA 100 MG/10 ML UNIT-DOSE CUPS PEG SCH ×2 (10:53→21:58)
[2020-03-25] MEDS: clonazePAM 0.25 MG ODT TABLETS GT SCH (10:55)
[2020-03-25] MEDS ORDERED: SODIUM POLYSTYRENE SULFONATE 15 GM/60 ML BOTTLE GT ONE (11:11)
[2020-03-25] MEDS: QUEtiapine FUMARATE 25 MG TABLET PEG SCH (22:00)
[2020-03-26] MEDS: clonazePAM 0.25 MG ODT TABLETS GT SCH ×3 (00:29→23:26)
[2020-03-26] MEDS ORDERED: DEXTROSE 5%-WATER 100 ML IVPB ONE ×3 (00:33→16:54)
[2020-03-26] MEDS ORDERED: MEROPENEM 1 GM VIAL (RESTRICTED TO ID) IVPB ONE ×3 (00:33→16:54)
[2020-03-26] MEDS: MEROPENEM 1 GM in DEXTROSE 5%-WATER 100 ML IVPB SCH ×3 (01:27→16:59)
[2020-03-26] MEDS: ACETAMINOPHEN 650 MG/20.3 ML ORAL SOLUTION (CUPS) GT PRN (05:52)
[2020-03-26] MEDS ORDERED: PT OWN MED DRAWER 7, Y5N ONE (07:06)
[2020-03-26] MEDS: AMINO ACIDS/PROTEIN HYDROLYS 30 ML LIQUID.PKT PEG SCH (10:53)
[2020-03-26] MEDS: ENOXAPARIN NA (PORCINE) 40 MG/0.4 ML DISP.SYRIN SQ SCH (10:53)
[2020-03-26] MEDS: NYSTATIN POWDER 100,000 UNITS/GM - 15 GM TOPICAL POWDER TP SCH ×2 (10:54→22:36)
[2020-03-26] MEDS: DOCUSATE NA 100 MG/10 ML UNIT-DOSE CUPS PEG SCH ×2 (11:01→22:36)
[2020-03-26] MEDS: QUEtiapine FUMARATE 25 MG TABLET PEG SCH (21:12)
[2020-03-27] MEDS ORDERED: MEROPENEM 1 GM VIAL (RESTRICTED TO ID) IVPB ONE (01:12)
[2020-03-27] MEDS ORDERED: DEXTROSE 5%-WATER 100 ML IVPB ONE (01:12)
[2020-03-27] MEDS: MEROPENEM 1 GM in DEXTROSE 5%-WATER 100 ML IVPB SCH (01:47)
[2020-03-27 09:15] LABS: HEMATOCRIT 25.3 % (32.4-45.2); HEMOGLOBIN 8.6 GM/dL (10.7-15.3); MCH 29.3 pg (25.7-33.7); MCHC 33.9 g/dl (32.0-36.0); MEAN CELL VOLUME 86.5 fl (80-96); MEAN PLT VOLUME 8.3 fl (7.5-11.1); PLATELET COUNT 367 K/MM3 (134-434); RBC 2.93 M/mm3 (3.60-5.2); RDW 16.1 % (11.6-15.6); WHITE BLOOD COUNT 6.9 K/mm3 (4.0-10.0)
[2020-03-27 09:29] LABS: POTASSIUM 4.6 mmol/L (3.5-5.1)
[2020-03-27 09:35] LABS: ALBUMIN 1.9 g/dl (3.4-5.0); CALCIUM 8.7 mg/dL (8.5-10.1)
[2020-03-27 09:36] LABS: BLOOD UREA NITROGEN 46.4 mg/dL (7-18)
[2020-03-27 09:38] LABS: CREATININE 0.6 mg/dL (0.55-1.3)
[2020-03-27 09:40] LABS: BILIRUBIN,TOTAL 0.3 mg/dL (0.2-1); TOT PROT 5.6 g/dl (6.4-8.2)
[2020-03-27] MEDS: AMINO ACIDS/PROTEIN HYDROLYS 30 ML LIQUID.PKT PEG SCH (10:16)
[2020-03-27] MEDS: DOCUSATE NA 100 MG/10 ML UNIT-DOSE CUPS PEG SCH ×2 (10:16→22:52)
[2020-03-27] MEDS: NYSTATIN POWDER 100,000 UNITS/GM - 15 GM TOPICAL POWDER TP SCH ×2 (10:18→22:52)
[2020-03-27] MEDS: clonazePAM 0.25 MG ODT TABLETS GT SCH ×2 (12:49→22:52)
[2020-03-27] MEDS: ENOXAPARIN NA (PORCINE) 40 MG/0.4 ML DISP.SYRIN SQ SCH (12:50)
[2020-03-27] MEDS: QUEtiapine FUMARATE 25 MG TABLET PEG SCH (22:52)
[2020-03-28] MEDS: ENOXAPARIN NA (PORCINE) 40 MG/0.4 ML DISP.SYRIN SQ SCH (09:18)
[2020-03-28] MEDS: DOCUSATE NA 100 MG/10 ML UNIT-DOSE CUPS PEG SCH ×2 (09:18→22:32)
[2020-03-28] MEDS: AMINO ACIDS/PROTEIN HYDROLYS 30 ML LIQUID.PKT PEG SCH (09:18)
[2020-03-28] MEDS: NYSTATIN POWDER 100,000 UNITS/GM - 15 GM TOPICAL POWDER TP SCH ×2 (09:19→22:33)
[2020-03-28] MEDS ORDERED: FERRIC CARBOXYMALTOSE 750 MG in SODIUM CHLORIDE 250 ML IVPB ONE (11:00)
[2020-03-28] MEDS: ALBUTEROL SO4 2.5/IPRATROPIUM 0.5 INH SOL 3 ML VIAL.NEB. NEB SCH ×3 (12:00→20:45)
[2020-03-28] MEDS: clonazePAM 0.25 MG ODT TABLETS GT SCH (12:02)
[2020-03-28] MEDS ORDERED: clonazePAM 0.5 MG TABLET GT PRN (13:14)
[2020-03-28] MEDS ORDERED: PNEUMOC 13-VAL CONJ-DIP CRM/PF 0.5 ML DISP.SYRIN IM ONE (18:31)
[2020-03-28] MEDS: QUEtiapine FUMARATE 25 MG TABLET PEG SCH (22:32)
[2020-03-28] MEDS: FERROUS SO4 300 MG/5 ML ORAL SOLN UNIT DOSE CUPS GT SCH (22:32)
[2020-03-29] MEDS: clonazePAM 0.5 MG TABLET GT SCH (06:22)
[2020-03-29] MEDS: ALBUTEROL SO4 2.5/IPRATROPIUM 0.5 INH SOL 3 ML VIAL.NEB. NEB SCH ×4 (07:50→20:59)
[2020-03-29] MEDS: DOCUSATE NA 100 MG/10 ML UNIT-DOSE CUPS PEG SCH ×2 (10:48→21:01)
[2020-03-29] MEDS: FERROUS SO4 300 MG/5 ML ORAL SOLN UNIT DOSE CUPS GT SCH ×2 (10:48→21:01)
[2020-03-29] MEDS: ENOXAPARIN NA (PORCINE) 40 MG/0.4 ML DISP.SYRIN SQ SCH (10:48)
[2020-03-29] MEDS: AMINO ACIDS/PROTEIN HYDROLYS 30 ML LIQUID.PKT PEG SCH (10:48)
[2020-03-29] MEDS: NYSTATIN POWDER 100,000 UNITS/GM - 15 GM TOPICAL POWDER TP SCH ×2 (10:49→21:02)
[2020-03-29] MEDS: QUEtiapine FUMARATE 25 MG TABLET PEG SCH (21:01)
[2020-03-30] MEDS: clonazePAM 0.5 MG TABLET GT SCH (06:28)
[2020-03-30] MEDS: FERROUS SO4 300 MG/5 ML ORAL SOLN UNIT DOSE CUPS GT SCH ×2 (09:25→22:30)
[2020-03-30] MEDS: AMINO ACIDS/PROTEIN HYDROLYS 30 ML LIQUID.PKT PEG SCH (09:25)
[2020-03-30] MEDS: ENOXAPARIN NA (PORCINE) 40 MG/0.4 ML DISP.SYRIN SQ SCH (09:25)
[2020-03-30] MEDS: DOCUSATE NA 100 MG/10 ML UNIT-DOSE CUPS PEG SCH ×2 (09:25→22:30)
[2020-03-30] MEDS: NYSTATIN POWDER 100,000 UNITS/GM - 15 GM TOPICAL POWDER TP SCH ×2 (09:26→22:30)
[2020-03-30] MEDS: ALBUTEROL SO4 2.5/IPRATROPIUM 0.5 INH SOL 3 ML VIAL.NEB. NEB SCH ×4 (09:27→21:00)
[2020-03-30] MEDS: ACETAMINOPHEN 650 MG/20.3 ML ORAL SOLUTION (CUPS) GT PRN ×2 (15:39→22:29)
[2020-03-30] MEDS: QUEtiapine FUMARATE 25 MG TABLET PEG SCH (22:30)
[2020-03-31] MEDS: clonazePAM 0.5 MG TABLET GT SCH (06:24)
[2020-03-31] MEDS: ALBUTEROL SO4 2.5/IPRATROPIUM 0.5 INH SOL 3 ML VIAL.NEB. NEB SCH ×2 (07:35→11:20)
[2020-03-31] MEDS: DOCUSATE NA 100 MG/10 ML UNIT-DOSE CUPS PEG SCH ×2 (09:27→22:43)
[2020-03-31] MEDS: ENOXAPARIN NA (PORCINE) 40 MG/0.4 ML DISP.SYRIN SQ SCH (09:27)
[2020-03-31] MEDS: AMINO ACIDS/PROTEIN HYDROLYS 30 ML LIQUID.PKT PEG SCH (09:27)
[2020-03-31] MEDS: FERROUS SO4 300 MG/5 ML ORAL SOLN UNIT DOSE CUPS GT SCH ×2 (09:27→22:43)
[2020-03-31] MEDS: NYSTATIN POWDER 100,000 UNITS/GM - 15 GM TOPICAL POWDER TP SCH ×2 (09:28→22:48)
[2020-03-31 10:06] LABS: BASO % 0.3 % (0-2.0); EOS % 1.1 % (0-4.5); HEMATOCRIT 24.6 % (32.4-45.2); HEMOGLOBIN 8.2 GM/dL (10.7-15.3); MCH 28.9 pg (25.7-33.7); MCHC 33.2 g/dl (32.0-36.0); MEAN PLT VOLUME 8.5 fl (7.5-11.1); MONO % 5.6 % (3.8-10.2); PLATELET COUNT 402 K/MM3 (134-434); RBC 2.83 M/mm3 (3.60-5.2); RDW 16.4 % (11.6-15.6)
[2020-03-31 10:12] LABS: POTASSIUM 4.5 mmol/L (3.5-5.1)
[2020-03-31 10:28] LABS: BLOOD UREA NITROGEN 41.7 mg/dL (7-18)
[2020-03-31 10:30] LABS: CALCIUM 8.8 mg/dL (8.5-10.1); CREATININE 0.7 mg/dL (0.55-1.3)
[2020-03-31 10:31] LABS: TOT PROT 5.7 g/dl (6.4-8.2)
[2020-03-31 10:34] LABS: BILIRUBIN,TOTAL 0.4 mg/dL (0.2-1)
[2020-03-31] MEDS ORDERED: METOPROLOL TARTRATE 5 MG/5 ML VIAL IVPB ONE (11:59)
[2020-03-31] MEDS ORDERED: PIPERACILLIN/TAZOBACTAM 3.375 GM VIAL IVPB ONE ×2 (14:22→17:42)
[2020-03-31] MEDS ORDERED: DEXTROSE 5%-WATER - 50 ML IVPB ONE ×2 (14:22→17:42)
[2020-03-31] MEDS: PIPERACILLIN/TAZOB 3.375 GM 3.375 GM in DEXTROSE 5%-WATER - 50 ML IVPB SCH ×2 (14:36→17:46)
[2020-03-31] MEDS: ALBUTEROL SO4 0.083% IH SOL 2.5 MG/3 ML VIAL.NEB. NEB SCH ×2 (15:19→20:51)
[2020-03-31] MEDS: ACETYLCYSTEINE 20% 200MG/ML 4 ML VIAL *FOR ORAL / INH USE ONLY NEB SCH (22:15)
[2020-03-31] MEDS: QUEtiapine FUMARATE 25 MG TABLET PEG SCH (22:43)
[2020-04-01] MEDS ORDERED: DEXTROSE 5%-WATER - 50 ML IVPB ONE ×3 (02:36→17:05)
[2020-04-01] MEDS ORDERED: PIPERACILLIN/TAZOBACTAM 3.375 GM VIAL IVPB ONE ×3 (02:36→17:05)
[2020-04-01] MEDS: PIPERACILLIN/TAZOB 3.375 GM 3.375 GM in DEXTROSE 5%-WATER - 50 ML IVPB SCH ×3 (02:45→17:07)
[2020-04-01] MEDS: clonazePAM 0.5 MG TABLET GT SCH (06:58)
[2020-04-01] MEDS: ALBUTEROL SO4 0.083% IH SOL 2.5 MG/3 ML VIAL.NEB. NEB SCH ×4 (07:25→20:30)
[2020-04-01 09:28] LABS: BASO % 0.4 % (0-2.0); EOS % 2.5 % (0-4.5); HEMATOCRIT 26.9 % (32.4-45.2); HEMOGLOBIN 8.8 GM/dL (10.7-15.3); LYMPH % 9.3 % (8-40); MCH 29.1 pg (25.7-33.7); MCHC 32.9 g/dl (32.0-36.0); MEAN CELL VOLUME 88.4 fl (80-96); MEAN PLT VOLUME 8.8 fl (7.5-11.1); MONO % 6.9 % (3.8-10.2); NEUT % 80.9 % (42.8-82.8); PLATELET COUNT 447 K/MM3 (134-434); RBC 3.04 M/mm3 (3.60-5.2); RDW 16.8 % (11.6-15.6); WHITE BLOOD COUNT 15.1 K/mm3 (4.0-10.0)
[2020-04-01 09:43] LABS: POTASSIUM 4.2 mmol/L (3.5-5.1)
[2020-04-01] MEDS: AMINO ACIDS/PROTEIN HYDROLYS 30 ML LIQUID.PKT PEG SCH (09:58)
[2020-04-01] MEDS: DOCUSATE NA 100 MG/10 ML UNIT-DOSE CUPS PEG SCH ×2 (09:58→22:50)
[2020-04-01] MEDS: FERROUS SO4 300 MG/5 ML ORAL SOLN UNIT DOSE CUPS GT SCH ×2 (09:58→22:50)
[2020-04-01] MEDS: ENOXAPARIN NA (PORCINE) 40 MG/0.4 ML DISP.SYRIN SQ SCH (09:59)
[2020-04-01] MEDS: NYSTATIN POWDER 100,000 UNITS/GM - 15 GM TOPICAL POWDER TP SCH ×2 (10:00→22:53)
[2020-04-01 10:03] LABS: ALBUMIN 2.1 g/dl (3.4-5.0); BLOOD UREA NITROGEN 39.6 mg/dL (7-18); CALCIUM 8.8 mg/dL (8.5-10.1)
[2020-04-01 10:05] LABS: BILIRUBIN,TOTAL 0.4 mg/dL (0.2-1)
[2020-04-01 10:06] LABS: CREATININE 0.7 mg/dL (0.55-1.3)
[2020-04-01 10:07] LABS: TOT PROT 6.4 g/dl (6.4-8.2)
[2020-04-01] MEDS: ACETYLCYSTEINE 20% 200MG/ML 4 ML VIAL *FOR ORAL / INH USE ONLY NEB SCH ×2 (12:13→21:30)
[2020-04-01] MEDS: QUEtiapine FUMARATE 25 MG TABLET PEG SCH (22:54)
[2020-04-02] MEDS ORDERED: PIPERACILLIN/TAZOBACTAM 3.375 GM VIAL IVPB ONE ×3 (02:07→17:45)
[2020-04-02] MEDS ORDERED: DEXTROSE 5%-WATER - 50 ML IVPB ONE ×3 (02:07→17:45)
[2020-04-02] MEDS: PIPERACILLIN/TAZOB 3.375 GM 3.375 GM in DEXTROSE 5%-WATER - 50 ML IVPB SCH ×3 (02:21→18:05)
[2020-04-02] MEDS: clonazePAM 0.5 MG TABLET GT SCH (06:31)
[2020-04-02] MEDS: ACETYLCYSTEINE 20% 200MG/ML 4 ML VIAL *FOR ORAL / INH USE ONLY NEB SCH ×2 (09:00→21:19)
[2020-04-02] MEDS: ALBUTEROL SO4 0.083% IH SOL 2.5 MG/3 ML VIAL.NEB. NEB SCH ×3 (09:00→21:19)
[2020-04-02 09:08] LABS: BASO % 0.6 % (0-2.0); EOS % 1.1 % (0-4.5); HEMATOCRIT 29.7 % (32.4-45.2); HEMOGLOBIN 9.8 GM/dL (10.7-15.3); LYMPH % 6.8 % (8-40); MCH 28.9 pg (25.7-33.7); MCHC 33.2 g/dl (32.0-36.0); MEAN PLT VOLUME 8.6 fl (7.5-11.1); MONO % 5.9 % (3.8-10.2); NEUT % 85.6 % (42.8-82.8); PLATELET COUNT 475 K/MM3 (134-434); RBC 3.41 M/mm3 (3.60-5.2); RDW 16.9 % (11.6-15.6); WHITE BLOOD COUNT 13.1 K/mm3 (4.0-10.0)
[2020-04-02] MEDS: DOCUSATE NA 100 MG/10 ML UNIT-DOSE CUPS PEG SCH ×2 (09:12→22:14)
[2020-04-02] MEDS: AMINO ACIDS/PROTEIN HYDROLYS 30 ML LIQUID.PKT PEG SCH (09:13)
[2020-04-02] MEDS: FERROUS SO4 300 MG/5 ML ORAL SOLN UNIT DOSE CUPS GT SCH ×2 (09:13→22:14)
[2020-04-02] MEDS: NYSTATIN POWDER 100,000 UNITS/GM - 15 GM TOPICAL POWDER TP SCH ×2 (09:13→22:14)
[2020-04-02] MEDS: ENOXAPARIN NA (PORCINE) 40 MG/0.4 ML DISP.SYRIN SQ SCH (09:13)
[2020-04-02 09:29] LABS: POTASSIUM 4.5 mmol/L (3.5-5.1)
[2020-04-02 10:10] LABS: ALBUMIN 2.2 g/dl (3.4-5.0); CALCIUM 9.2 mg/dL (8.5-10.1)
[2020-04-02 10:13] LABS: CREATININE 0.7 mg/dL (0.55-1.3)
[2020-04-02 10:15] LABS: BILIRUBIN,TOTAL 0.5 mg/dL (0.2-1); TOT PROT 6.8 g/dl (6.4-8.2)
[2020-04-02] MEDS: INSULIN (LEVEMIR) 100 UNITS/ML UNITS SQ SCH ×2 (12:32→22:15)
[2020-04-02] MEDS: METOPROLOL TARTRATE 25 MG TABLET (FP) PO SCH ×2 (12:32→22:14)
[2020-04-02 15:15] VITALS: BMI 19.8
[2020-04-02] MEDS: QUEtiapine FUMARATE 25 MG TABLET PEG SCH (22:14)
[2020-04-03] MEDS ORDERED: PIPERACILLIN/TAZOBACTAM 3.375 GM VIAL IVPB ONE ×3 (03:01→18:23)
[2020-04-03] MEDS ORDERED: DEXTROSE 5%-WATER - 50 ML IVPB ONE ×3 (03:02→18:23)
[2020-04-03] MEDS: PIPERACILLIN/TAZOB 3.375 GM 3.375 GM in DEXTROSE 5%-WATER - 50 ML IVPB SCH ×3 (03:06→18:26)
[2020-04-03] MEDS: INSULIN (LEVEMIR) 100 UNITS/ML UNITS SQ SCH ×2 (06:24→22:03)
[2020-04-03] MEDS: clonazePAM 0.5 MG TABLET GT SCH (06:30)
[2020-04-03] MEDS: ALBUTEROL SO4 0.083% IH SOL 2.5 MG/3 ML VIAL.NEB. NEB SCH ×5 (09:00→21:17)
[2020-04-03] MEDS: ACETYLCYSTEINE 20% 200MG/ML 4 ML VIAL *FOR ORAL / INH USE ONLY NEB SCH ×2 (09:00→21:17)
[2020-04-03 09:59] LABS: BASO % 0.5 % (0-2.0); EOS % 0.6 % (0-4.5); HEMATOCRIT 26.9 % (32.4-45.2); HEMOGLOBIN 8.8 GM/dL (10.7-15.3); LYMPH % 10.3 % (8-40); MCHC 32.7 g/dl (32.0-36.0); MEAN CELL VOLUME 88.6 fl (80-96); MEAN PLT VOLUME 8.7 fl (7.5-11.1); MONO % 5.8 % (3.8-10.2); NEUT % 82.8 % (42.8-82.8); PLATELET COUNT 503 K/MM3 (134-434); RBC 3.04 M/mm3 (3.60-5.2); WHITE BLOOD COUNT 9.3 K/mm3 (4.0-10.0)
[2020-04-03] MEDS: AMINO ACIDS/PROTEIN HYDROLYS 30 ML LIQUID.PKT PEG SCH (10:25)
[2020-04-03] MEDS: DOCUSATE NA 100 MG/10 ML UNIT-DOSE CUPS PEG SCH ×2 (10:26→22:03)
[2020-04-03] MEDS: METOPROLOL TARTRATE 25 MG TABLET (FP) PO SCH ×2 (10:26→22:03)
[2020-04-03] MEDS: FERROUS SO4 300 MG/5 ML ORAL SOLN UNIT DOSE CUPS GT SCH ×2 (10:26→22:03)
[2020-04-03] MEDS: NYSTATIN POWDER 100,000 UNITS/GM - 15 GM TOPICAL POWDER TP SCH ×2 (10:27→22:03)
[2020-04-03] MEDS: ENOXAPARIN NA (PORCINE) 40 MG/0.4 ML DISP.SYRIN SQ SCH (10:27)
[2020-04-03 10:29] LABS: POTASSIUM 4.3 mmol/L (3.5-5.1)
[2020-04-03 10:39] LABS: ALBUMIN 2.1 g/dl (3.4-5.0); BLOOD UREA NITROGEN 48.6 mg/dL (7-18); CALCIUM 9.3 mg/dL (8.5-10.1)
[2020-04-03 10:43] LABS: CREATININE 0.8 mg/dL (0.55-1.3)
[2020-04-03 10:44] LABS: BILIRUBIN,TOTAL 0.3 mg/dL (0.2-1); TOT PROT 6.2 g/dl (6.4-8.2)
[2020-04-03 14:07] LABS: ANISOCYTOSIS 1+; MACROCYTOSIS 0; PLATELET ESTIMATE NORMAL
[2020-04-03] MEDS: ACETAMINOPHEN 650 MG/20.3 ML ORAL SOLUTION (CUPS) GT PRN (18:25)
[2020-04-03] MEDS: QUEtiapine FUMARATE 25 MG TABLET PEG SCH (22:03)
[2020-04-04] MEDS ORDERED: PIPERACILLIN/TAZOBACTAM 3.375 GM VIAL IVPB ONE ×3 (01:49→17:19)
[2020-04-04] MEDS ORDERED: DEXTROSE 5%-WATER - 50 ML IVPB ONE ×3 (01:50→17:19)
[2020-04-04] MEDS: PIPERACILLIN/TAZOB 3.375 GM 3.375 GM in DEXTROSE 5%-WATER - 50 ML IVPB SCH ×3 (02:38→17:21)
[2020-04-04] MEDS: clonazePAM 0.5 MG TABLET GT SCH (06:05)
[2020-04-04] MEDS: INSULIN SLIDING SCALE (NOVOLOG) 1 VIAL SQ SCH ×2 (06:06→17:22)
[2020-04-04] MEDS: INSULIN (LEVEMIR) 100 UNITS/ML UNITS SQ SCH ×2 (06:06→21:34)
[2020-04-04] MEDS: ACETYLCYSTEINE 20% 200MG/ML 4 ML VIAL *FOR ORAL / INH USE ONLY NEB SCH ×2 (09:56→21:00)
[2020-04-04 10:02] LABS: BASO % 0.7 % (0-2.0); HEMATOCRIT 28.9 % (32.4-45.2); HEMOGLOBIN 9.5 GM/dL (10.7-15.3); LYMPH % 8.6 % (8-40); MCHC 32.9 g/dl (32.0-36.0); MEAN CELL VOLUME 88.3 fl (80-96); MEAN PLT VOLUME 8.5 fl (7.5-11.1); MONO % 7.3 % (3.8-10.2); NEUT % 81.4 % (42.8-82.8); PLATELET COUNT 495 K/MM3 (134-434); RBC 3.27 M/mm3 (3.60-5.2); RDW 17.2 % (11.6-15.6); WHITE BLOOD COUNT 13.1 K/mm3 (4.0-10.0)
[2020-04-04] MEDS: DOCUSATE NA 100 MG/10 ML UNIT-DOSE CUPS PEG SCH ×2 (10:22→21:34)
[2020-04-04] MEDS: AMINO ACIDS/PROTEIN HYDROLYS 30 ML LIQUID.PKT PEG SCH (10:22)
[2020-04-04] MEDS: METOPROLOL TARTRATE 25 MG TABLET (FP) PO SCH (10:22)
[2020-04-04] MEDS: NYSTATIN POWDER 100,000 UNITS/GM - 15 GM TOPICAL POWDER TP SCH ×2 (10:22→21:35)
[2020-04-04] MEDS: FERROUS SO4 300 MG/5 ML ORAL SOLN UNIT DOSE CUPS GT SCH ×2 (10:22→21:34)
[2020-04-04] MEDS: ENOXAPARIN NA (PORCINE) 40 MG/0.4 ML DISP.SYRIN SQ SCH (10:23)
[2020-04-04 10:27] LABS: ALBUMIN 2.2 g/dl (3.4-5.0); BLOOD UREA NITROGEN 61.2 mg/dL (7-18)
[2020-04-04 10:28] LABS: BILIRUBIN,TOTAL 0.4 mg/dL (0.2-1); CALCIUM 9.2 mg/dL (8.5-10.1); TOT PROT 6.4 g/dl (6.4-8.2)
[2020-04-04 10:30] LABS: CREATININE 0.8 mg/dL (0.55-1.3)
[2020-04-04 12:15] LABS: ANISOCYTOSIS 0; MACROCYTOSIS 0; PLATELET ESTIMATE INCREASED
[2020-04-04] MEDS: ALBUTEROL SO4 0.083% IH SOL 2.5 MG/3 ML VIAL.NEB. NEB SCH ×4 (12:56→21:00)
[2020-04-04] MEDS: ACETAMINOPHEN 650 MG/20.3 ML ORAL SOLUTION (CUPS) GT PRN (18:26)
[2020-04-05] MEDS: QUEtiapine FUMARATE 25 MG TABLET PEG SCH ×2 (00:11→23:27)
[2020-04-05] MEDS: METOPROLOL TARTRATE 25 MG TABLET (FP) PO SCH ×3 (00:11→23:27)
[2020-04-05] MEDS ORDERED: PIPERACILLIN/TAZOBACTAM 3.375 GM VIAL IVPB ONE ×2 (00:45→09:37)
[2020-04-05] MEDS ORDERED: DEXTROSE 5%-WATER - 50 ML IVPB ONE ×2 (00:45→09:37)
[2020-04-05] MEDS: PIPERACILLIN/TAZOB 3.375 GM 3.375 GM in DEXTROSE 5%-WATER - 50 ML IVPB SCH ×2 (01:36→09:44)
[2020-04-05] MEDS: INSULIN (LEVEMIR) 100 UNITS/ML UNITS SQ SCH ×2 (06:07→21:49)
[2020-04-05] MEDS: clonazePAM 0.5 MG TABLET GT SCH (06:07)
[2020-04-05] MEDS: INSULIN SLIDING SCALE (NOVOLOG) 1 VIAL SQ SCH ×2 (06:19→18:09)
[2020-04-05] MEDS: ACETYLCYSTEINE 20% 200MG/ML 4 ML VIAL *FOR ORAL / INH USE ONLY NEB SCH ×2 (08:11→21:21)
[2020-04-05] MEDS: ALBUTEROL SO4 0.083% IH SOL 2.5 MG/3 ML VIAL.NEB. NEB SCH ×4 (08:11→21:21)
[2020-04-05] MEDS: AMINO ACIDS/PROTEIN HYDROLYS 30 ML LIQUID.PKT PEG SCH (09:44)
[2020-04-05] MEDS: DOCUSATE NA 100 MG/10 ML UNIT-DOSE CUPS PEG SCH ×2 (09:45→21:50)
[2020-04-05] MEDS: ENOXAPARIN NA (PORCINE) 40 MG/0.4 ML DISP.SYRIN SQ SCH (09:45)
[2020-04-05] MEDS: FERROUS SO4 300 MG/5 ML ORAL SOLN UNIT DOSE CUPS GT SCH ×2 (09:45→21:50)
[2020-04-05] MEDS: NYSTATIN POWDER 100,000 UNITS/GM - 15 GM TOPICAL POWDER TP SCH ×2 (09:45→21:50)
[2020-04-05] MEDS ORDERED: PT OWN MED DRAWER 7, Y5N ONE (11:25)
[2020-04-05] MEDS: ACETAMINOPHEN 650 MG/20.3 ML ORAL SOLUTION (CUPS) GT PRN (13:54)
[2020-04-05] MEDS: ERTAPENEM SODIUM 1 GM in SODIUM CHLORIDE 50 ML IVPB SCH (17:21)
[2020-04-06] MEDS: clonazePAM 0.5 MG TABLET GT SCH (06:04)
[2020-04-06] MEDS: INSULIN (LEVEMIR) 100 UNITS/ML UNITS SQ SCH (06:20)
[2020-04-06] MEDS: INSULIN SLIDING SCALE (NOVOLOG) 1 VIAL SQ SCH (06:21)
[2020-04-06] MEDS: ALBUTEROL SO4 0.083% IH SOL 2.5 MG/3 ML VIAL.NEB. NEB SCH ×2 (08:15→11:56)
[2020-04-06] MEDS: ACETYLCYSTEINE 20% 200MG/ML 4 ML VIAL *FOR ORAL / INH USE ONLY NEB SCH (09:40)
[2020-04-06] MEDS: ENOXAPARIN NA (PORCINE) 40 MG/0.4 ML DISP.SYRIN SQ SCH (09:57)
[2020-04-06] MEDS: AMINO ACIDS/PROTEIN HYDROLYS 30 ML LIQUID.PKT PEG SCH (09:57)
[2020-04-06] MEDS: DOCUSATE NA 100 MG/10 ML UNIT-DOSE CUPS PEG SCH (09:57)
[2020-04-06] MEDS: FERROUS SO4 300 MG/5 ML ORAL SOLN UNIT DOSE CUPS GT SCH (09:57)
[2020-04-06] MEDS: ERTAPENEM SODIUM 1 GM in SODIUM CHLORIDE 50 ML IVPB SCH (09:58)
[2020-04-06] MEDS: METOPROLOL TARTRATE 25 MG TABLET (FP) PO SCH (09:58)
[2020-04-06] MEDS: NYSTATIN POWDER 100,000 UNITS/GM - 15 GM TOPICAL POWDER TP SCH (09:59)
[2020-04-06] MEDS ORDERED: PIPERACILLIN/TAZOB 3.375 GM 3.375 GM in DEXTROSE 5%-WATER - 50 ML IVPB ONE (11:00)
[2020-04-06] MEDS ORDERED: PIPERACILLIN/TAZOBACTAM 3.375 GM VIAL IVPB ONE (11:37)
[2020-04-06] MEDS ORDERED: DEXTROSE 5%-WATER - 50 ML IVPB ONE (11:38)
[2020-04-06 13:19] VITALS: BP 110/56; PULSE 92; TEMP 100.3
[2020-04-06] MEDS: ACETAMINOPHEN 650 MG/20.3 ML ORAL SOLUTION (CUPS) GT PRN (13:22)
== END 2020-04-06 14:30 | DRG 870 ==
LOC: JER 04:13 → JERBED 06:03 → J5S 03-05 15:21 → JICU 03-12 01:59 → J5S 03-16 06:21
PROVIDERS: ADMIT Hospitalist; ATTEND Family Medicine
PROC: 0WHB3YZ Insertion of Other Device into Left Pleural Cavity, Percutaneous Approach (ICD-10-PCS; 2020-03-07)
PROC: 5A1955Z Respiratory Ventilation, Greater than 96 Consecutive Hours (ICD-10-PCS; principal; 2020-03-12)
PROC: 0W9B30Z Drainage of Left Pleural Cavity with Drainage Device, Percutaneous Approach (ICD-10-PCS; 2020-03-20)
PROC: 02HV33Z Insertion of Infusion Device into Superior Vena Cava, Percutaneous Approach (ICD-10-PCS; 2020-04-05)
PROC: B518ZZA Fluoroscopy of Superior Vena Cava, Guidance (ICD-10-PCS; 2020-04-05)
DX: A41.52 Sepsis due to Pseudomonas (principal); J96.21 Acute and chronic respiratory failure with hypoxia; J69.0 Pneumonitis due to inhalation of food and vomit; J95.851 Ventilator associated pneumonia; G93.40 Encephalopathy, unspecified; J90 Pleural effusion, not elsewhere classified; I31.3 Pericardial effusion (noninflammatory); J98.11 Atelectasis; R64 Cachexia; Z68.1 Body mass index [BMI] 19.9 or less, adult; Z99.11 Dependence on respirator [ventilator] status; Z93.0 Tracheostomy status; Z85.118 Personal history of other malignant neoplasm of bronchus and lung; L89.312 Pressure ulcer of right buttock, stage 2; R00.0 Tachycardia, unspecified; Z93.1 Gastrostomy status; J98.4 Other disorders of lung; E87.5 Hyperkalemia; E11.65 Type 2 diabetes mellitus with hyperglycemia; D64.9 Anemia, unspecified
CPT/HCPCS: 32557; 36415; 36569; 71045-TC-FY; 71250-TC; 71275-TC; 74018-TC-FY; 77001-TC-FY; 80048; 80053; 81003; 82042; 82150; 82272; 82465; 82550; 82607; 82728; 82803; 82945; 82962; 83036; 83540; 83550; 83605; 83615; 83735; 83986; 84100; 84157; 84439; 84443; 84478; 84484; 85025; 85027; 85610; 85730; 87040; 87070; 87075; 87086; 87102; 87116; 87186; 87205; 87206; 87210; 87899; 88108; 88305-TC; 90670; 93005; 93010; 93306-TC; 94002; 94640; 97161-GP; 99285-25; C1751; C9803; J1439; Q9967; U0003

== ENCOUNTER 2020-05-01 16:17 | Inpatient (IN) | payer OTHER ==
[2020-05-01 18:08] LABS: BASO % 0.1 % (0-2.0); EOS % 0.1 % (0-4.5); HEMATOCRIT 29.5 % (32.4-45.2); HEMOGLOBIN 8.7 GM/dL (10.7-15.3); LYMPH % 5.4 % (8-40); MCH 28.4 pg (25.7-33.7); MCHC 29.5 g/dl (32.0-36.0); MEAN CELL VOLUME 96.3 fl (80-96); MEAN PLT VOLUME 10.5 fl (7.5-11.1); MONO % 4.3 % (3.8-10.2); NEUT % 90.1 % (42.8-82.8); PLATELET COUNT 494 K/MM3 (134-434); RBC 3.06 M/mm3 (3.60-5.2); RDW 19.2 % (11.6-15.6)
[2020-05-01 18:09] LABS: INR 1.34 (0.83-1.09); PROTHROMBIN TIME (PATIENT) 16.3 SEC (9.7-13.0)
[2020-05-01 18:12] LABS: ACTIVATED PTT 32.9 SECONDS (25.2-36.5)
[2020-05-01] MEDS: NOREPINEPHRINE BITARTRATE 16,000 MCG in SODIUM CHLORIDE 484 ML IV SCH (18:20)
[2020-05-01 18:22] LABS: WHITE BLOOD COUNT 30.9 K/mm3 (4.0-10.0)
[2020-05-01] MEDS ORDERED: VANCOMYCIN 1 GM in D5W (PRE-DOCKED) 1,000 MG/250 ML IVPB ONE (18:27)
[2020-05-01] MEDS ORDERED: PIPERACILLIN/TAZOB 4.5 GM 4.5 GM in DEXTROSE 5%-WATER 100 ML IVPB ONE (18:27)
[2020-05-01] MEDS ORDERED: PIPERACILLIN/TAZOB 4.5 GM 4.5 GM/100 ML BAG IVPB ONE (18:42)
[2020-05-01 18:50] LABS: POTASSIUM 5.9 mmol/L (3.5-5.1)
[2020-05-01 18:52] LABS: ALBUMIN 1.4 g/dl (3.4-5.0); CALCIUM 7.8 mg/dL (8.5-10.1)
[2020-05-01 18:55] LABS: CREATININE 2.1 mg/dL (0.55-1.3)
[2020-05-01 18:57] LABS: BILIRUBIN,TOTAL 0.4 mg/dL (0.2-1); TOT PROT 5.4 g/dl (6.4-8.2)
[2020-05-01 19:01] LABS: ANISOCYTOSIS 2+; MACROCYTOSIS 1+; PLATELET ESTIMATE INCREASED; TARGET CELLS 2+
[2020-05-01 19:11] LABS: ERYTHROCYTE SEDIMENTATION RATE > 140 mm/hr (0-30)
[2020-05-01] MEDS ORDERED: ACETAMINOPHEN 1000 MG/100 ML VIAL (NON FORMULARY) IVPB ONE (19:14)
[2020-05-01] MEDS ORDERED: VANCOMYCIN 1 GRAM (PRE-DOCKED) 1,000 MG/250 ML BAG IVPB ONE (19:44)
[2020-05-01] MEDS ORDERED: ACETAMINOPHEN INJECTION 100 ML IVPB ONE (19:44)
[2020-05-01 20:14] LABS: BLOOD UREA NITROGEN 174.6 mg/dL (7-18)
[2020-05-01] MEDS ORDERED: SODIUM CHLORIDE 0.9% 500 ML INFUS.BAG IV ONE (20:30)
[2020-05-01 20:46] LABS: EPI CELLS >36 /uL (0-25.1); HYALINE CASTS 8 /uL (0-3.1); URINE APPEARANCE TURBID; URINE BACTERIA 451 /uL (0-1359); URINE BILIRUBIN 1+ (NEGATIVE); URINE COLOR DK YELLOW; URINE GLUCOSE (UA) NEGATIVE (NEGATIVE); URINE KETONE TRACE (NEGATIVE); URINE LEUK ESTERASE 1+ (NEGATIVE); URINE NITRITE NEGATIVE (NEGATIVE); URINE PROTEIN NEGATIVE (NEGATIVE); URINE RBC 13 /uL (0-23.9); URINE WBC 29 /uL (0-25.8)
[2020-05-01] MEDS ORDERED: LACTATED RINGERS SOLUTION 1000 ML INFUS.BAG IV ONE (20:46)
[2020-05-01 21:00] LABS: ALBUMIN 1.4 g/dl (3.4-5.0); CALCIUM 7.7 mg/dL (8.5-10.1)
[2020-05-01] MEDS ORDERED: DEXAMETHASONE SOD PHOSPHATE 10 MG/1 ML VIAL IVPUSH ONE (21:00)
[2020-05-01 21:03] LABS: CREATININE 2.1 mg/dL (0.55-1.3)
[2020-05-01 21:05] LABS: BILIRUBIN,TOTAL 0.4 mg/dL (0.2-1); TOT PROT 5.4 g/dl (6.4-8.2)
[2020-05-01 21:13] LABS: BLOOD UREA NITROGEN 171.6 mg/dL (7-18); POTASSIUM 6.2 mmol/L (3.5-5.1)
[2020-05-01] MEDS ORDERED: WATER IVPB SCH (21:15)
[2020-05-01] MEDS ORDERED: LACTATED RINGERS SOLUTION 1,000 ML/1,000 ML INFUS.BAG IV SCH (21:15)
[2020-05-01] MEDS ORDERED: SODIUM CHLORIDE 0.45% 1,000 ML IV SCH (21:15)
[2020-05-01] MEDS ORDERED: VANCOMYCIN IVPB SCH (21:15)
[2020-05-01] MEDS ORDERED: DEXTROSE 5% IVPB SCH (21:15)
[2020-05-01] MEDS ORDERED: DEXAMETHASONE SOD PHOSPHATE 10 MG/1 ML VIAL ONE (21:21)
[2020-05-01] MEDS ORDERED: DEXTROSE 50%-WATER - 25 GM/50 ML VIAL IVPUSH ONE (21:28)
[2020-05-01] MEDS ORDERED: INSULIN REGULAR HUMAN 100 UNITS/ML *VIAL IVPUSH ONE (21:28)
[2020-05-01] MEDS ORDERED: ALBUTEROL SO4 0.083% IH SOL 2.5 MG/3 ML VIAL.NEB. NEB PRN (21:29)
[2020-05-01] MEDS ORDERED: CALCIUM GLUCONATE 10% - 1,000 MG/10 ML VIAL IVPUSH ONE (21:31)
[2020-05-01] MEDS ORDERED: CALCIUM GLUCONATE 10% - 1,000 MG/10 ML VIAL ONE (22:05)
[2020-05-01] MEDS ORDERED: DEXTROSE 50%-WATER 25 GM/50 ML DISP.SYRIN ONE (22:05)
[2020-05-01] MEDS ORDERED: HEPARIN NA (PORCINE) 5,000 UNITS/ML 1ML VIAL ONE (22:05)
[2020-05-01] MEDS: HEPARIN NA (PORCINE) 5,000 UNITS/ML 1ML VIAL SQ SCH (22:18)
[2020-05-01 22:20] LABS: ARTERIAL BLD GAS O2 SATURATION 93.5 mmHg (95-98); ARTERIAL BLOOD GAS BASE EXCESS -2.2 mmol/L (-2-2); ARTERIAL BLOOD GAS PO2 69.3 mmHg (80-100); ARTERIAL BLOOD GAS pH 7.372 (7.350-7.450)
[2020-05-01 22:21] LABS: ALLENS TEST POSITIVE; VENT MODE A/C; VENT RATE 16
[2020-05-01 22:59] LABS: POTASSIUM 5.3 mmol/L (3.5-5.1)
[2020-05-01 23:00] LABS: CALCIUM 7.3 mg/dL (8.5-10.1)
[2020-05-01 23:12] LABS: BLOOD UREA NITROGEN 159.2 mg/dL (7-18)
[2020-05-01] MEDS: FAMOTIDINE 20 MG/50 ML IVPB 20 MG/50 ML MG IVPB SCH (23:58)
[2020-05-02] MEDS: INSULIN SLIDING SCALE (NOVOLOG) 1 VIAL SQ SCH ×5 (00:09→21:24)
[2020-05-02] MEDS ORDERED: DEXTROSE 5%-WATER - 50 ML IVPB ONE ×4 (01:28→19:04)
[2020-05-02] MEDS ORDERED: PIPERACILLIN/TAZOBACTAM 2.25 GM VIAL IVPB ONE ×4 (01:28→19:03)
[2020-05-02] MEDS: PIPERACILLIN/TAZOB 2.25 GM 2.25 GM in DEXTROSE 5%-WATER - 50 ML IVPB SCH ×3 (02:07→19:13)
[2020-05-02 03:21] LABS: POTASSIUM 5.2 mmol/L (3.5-5.1)
[2020-05-02 03:22] LABS: CALCIUM 7.8 mg/dL (8.5-10.1)
[2020-05-02 03:44] LABS: BLOOD UREA NITROGEN 160.3 mg/dL (7-18)
[2020-05-02] MEDS: HEPARIN NA (PORCINE) 5,000 UNITS/ML 1ML VIAL SQ SCH ×3 (06:02→21:23)
[2020-05-02 07:42] LABS: BASO % 0.1 % (0-2.0); HEMATOCRIT 29.4 % (32.4-45.2); HEMOGLOBIN 8.7 GM/dL (10.7-15.3); LYMPH % 3.1 % (8-40); MCHC 29.5 g/dl (32.0-36.0); MEAN PLT VOLUME 10.4 fl (7.5-11.1); MONO % 2.6 % (3.8-10.2); NEUT % 94.2 % (42.8-82.8); PLATELET COUNT 587 K/MM3 (134-434); RBC 3.09 M/mm3 (3.60-5.2); RDW 19.2 % (11.6-15.6)
[2020-05-02 07:54] LABS: WHITE BLOOD COUNT 35.8 K/mm3 (4.0-10.0)
[2020-05-02 07:56] LABS: ALBUMIN 1.4 g/dl (3.4-5.0)
[2020-05-02 07:57] LABS: CALCIUM 7.8 mg/dL (8.5-10.1)
[2020-05-02 07:58] LABS: MAGNESIUM 2.9 mg/dL (1.8-2.4)
[2020-05-02 08:00] LABS: CREATININE 1.9 mg/dL (0.55-1.3); PHOSPHOROUS 3.7 mg/dL (2.5-4.9)
[2020-05-02 08:01] LABS: BILIRUBIN,TOTAL 0.7 mg/dL (0.2-1); TOT PROT 5.3 g/dl (6.4-8.2)
[2020-05-02 08:05] LABS: N-TERMINAL BNP 732.8 pg/ml (5-450)
[2020-05-02] MEDS: INSULIN (LEVEMIR) 100 UNITS/ML UNITS SQ SCH ×2 (08:11→21:23)
[2020-05-02 08:55] LABS: BLOOD UREA NITROGEN 157.5 mg/dL (7-18); POTASSIUM 6.2 mmol/L (3.5-5.1)
[2020-05-02] MEDS ORDERED: CALCIUM GLUCONATE 10% - 1,000 MG/10 ML VIAL IVPB ONE ×2 (08:55→17:11)
[2020-05-02] MEDS ORDERED: INSULIN REGULAR HUMAN 100 UNITS/ML *VIAL IVPUSH ONE ×2 (08:56→17:11)
[2020-05-02] MEDS ORDERED: LACTATED RINGERS SOLUTION 1000 ML INFUS.BAG IV ONE ×2 (09:25→14:37)
[2020-05-02] MEDS ORDERED: DEXTROSE 50%-WATER 25 GM/50 ML DISP.SYRIN ONE ×2 (09:32→19:05)
[2020-05-02] MEDS ORDERED: DEXTROSE 50%-WATER - 25 GM/50 ML VIAL IVPUSH ONE ×2 (09:39→17:11)
[2020-05-02] MEDS ORDERED: clonazePAM 0.5 MG TABLET PEG SCH (10:00)
[2020-05-02] MEDS ORDERED: DEXAMETHASONE SOD PHOSPHATE 10 MG/1 ML VIAL IVPUSH SCH (10:00)
[2020-05-02] MEDS: MUPIROCIN 2% TOPICAL OINTMENT FOR DECOLONIZATION NS SCH ×2 (10:10→21:22)
[2020-05-02 10:11] LABS: ANISOCYTOSIS 1+; MACROCYTOSIS 0; PLATELET ESTIMATE INCREASED
[2020-05-02] MEDS: FAMOTIDINE 20 MG/50 ML IVPB 20 MG/50 ML MG IVPB SCH (11:00)
[2020-05-02] MEDS: VASOPRESSIN 40 UNITS in SODIUM CHLORIDE 98 ML IVPB SCH (12:11)
[2020-05-02] MEDS ORDERED: HYDROCORTISONE SOD SUCCINATE 100 MG/2 ML VIAL IVPB SCH (14:30)
[2020-05-02] MEDS ORDERED: SODIUM CHLORIDE 0.45% 1,000 ML IV SCH (15:01)
[2020-05-02] MEDS ORDERED: FLUCONAZOLE 400 MG/D5W 200 ML IVPB SCH (16:00)
[2020-05-02] MEDS: HYDROCORTISONE SOD SUCCINATE 100 MG/2 ML VIAL IVPB SCH ×2 (16:10→21:23)
[2020-05-02 16:28] LABS: POTASSIUM 5.7 mmol/L (3.5-5.1)
[2020-05-02 16:31] LABS: CALCIUM 8.3 mg/dL (8.5-10.1)
[2020-05-02 16:32] LABS: ALBUMIN 1.3 g/dl (3.4-5.0); MAGNESIUM 2.7 mg/dL (1.8-2.4)
[2020-05-02 16:34] LABS: CREATININE 1.9 mg/dL (0.55-1.3)
[2020-05-02 16:35] LABS: PHOSPHOROUS 4.1 mg/dL (2.5-4.9)
[2020-05-02 16:36] LABS: BILIRUBIN,TOTAL 1.2 mg/dL (0.2-1); TOT PROT 5.3 g/dl (6.4-8.2)
[2020-05-02 17:02] LABS: BLOOD UREA NITROGEN 149.7 mg/dL (7-18)
[2020-05-02] MEDS ORDERED: SODIUM ZIRCONIUM CYCLOSILICATE (LOKELMA) 5 GM PACKET PO ONE (17:09)
[2020-05-02] MEDS: FLUCONAZOLE 400 MG/NS 200 ML IVPB SCH ×2 (17:24→19:24)
[2020-05-02] MEDS: NOREPINEPHRINE BITARTRATE 16,000 MCG in SODIUM CHLORIDE 484 ML IV SCH (19:14)
[2020-05-02] MEDS ORDERED: VANCOMYCIN 750 MG in DEXTROSE 5%-WATER - 250 ML IVPB SCH (20:00)
[2020-05-02] MEDS: CHLORHEXIDINE GLUCONATE 4% CLEANSER FOR DECOLONIZATION TP SCH (21:23)
[2020-05-02] MEDS: NOREPINEPHRINE NS PREMIX 16,000 MCG/500 ML BAG IVPB SCH (23:34)
[2020-05-03] MEDS ORDERED: PIPERACILLIN/TAZOBACTAM 2.25 GM VIAL IVPB ONE ×3 (02:32→17:27)
[2020-05-03] MEDS ORDERED: DEXTROSE 5%-WATER - 50 ML IVPB ONE ×3 (02:32→17:27)
[2020-05-03] MEDS: PIPERACILLIN/TAZOB 2.25 GM 2.25 GM in DEXTROSE 5%-WATER - 50 ML IVPB SCH ×3 (02:39→17:30)
[2020-05-03] MEDS: HYDROCORTISONE SOD SUCCINATE 100 MG/2 ML VIAL IVPB SCH ×4 (02:39→20:33)
[2020-05-03] MEDS: INSULIN (LEVEMIR) 100 UNITS/ML UNITS SQ SCH ×2 (06:35→21:04)
[2020-05-03] MEDS: INSULIN SLIDING SCALE (NOVOLOG) 1 VIAL SQ SCH ×4 (06:35→21:03)
[2020-05-03] MEDS: HEPARIN NA (PORCINE) 5,000 UNITS/ML 1ML VIAL SQ SCH ×3 (06:37→21:01)
[2020-05-03 07:46] LABS: BASO % 0.1 % (0-2.0); EOS % 0.5 % (0-4.5); HEMATOCRIT 27.1 % (32.4-45.2); HEMOGLOBIN 8.1 GM/dL (10.7-15.3); LYMPH % 2.3 % (8-40); MCH 28.8 pg (25.7-33.7); MCHC 29.8 g/dl (32.0-36.0); MEAN CELL VOLUME 96.4 fl (80-96); MEAN PLT VOLUME 10.4 fl (7.5-11.1); MONO % 2.9 % (3.8-10.2); NEUT % 94.2 % (42.8-82.8); PLATELET COUNT 553 K/MM3 (134-434); RBC 2.82 M/mm3 (3.60-5.2); RDW 18.6 % (11.6-15.6)
[2020-05-03 08:00] LABS: EPI CELLS 7 /uL (0-25.1); HYALINE CASTS 1 /uL (0-3.1); URINE APPEARANCE CLOUDY; URINE BACTERIA 35 /uL (0-1359); URINE BILIRUBIN NEGATIVE (NEGATIVE); URINE COLOR YELLOW; URINE GLUCOSE (UA) TRACE (NEGATIVE); URINE KETONE NEGATIVE (NEGATIVE); URINE LEUK ESTERASE 1+ (NEGATIVE); URINE NITRITE NEGATIVE (NEGATIVE); URINE PROTEIN 1+ (NEGATIVE); URINE UROBILINOGEN 0.2 mg/dL (0.2-1.0); URINE WBC 57 /uL (0-25.8)
[2020-05-03 08:06] LABS: WHITE BLOOD COUNT 35.7 K/mm3 (4.0-10.0)
[2020-05-03 08:11] LABS: POTASSIUM 5.9 mmol/L (3.5-5.1)
[2020-05-03 08:13] LABS: ALBUMIN 1.2 g/dl (3.4-5.0); CALCIUM 8.2 mg/dL (8.5-10.1); MAGNESIUM 2.9 mg/dL (1.8-2.4)
[2020-05-03 08:16] LABS: CREATININE 1.9 mg/dL (0.55-1.3)
[2020-05-03 08:18] LABS: BILIRUBIN,TOTAL 0.5 mg/dL (0.2-1); TOT PROT 4.9 g/dl (6.4-8.2)
[2020-05-03 08:39] LABS: BLOOD UREA NITROGEN 148.9 mg/dL (7-18)
[2020-05-03] MEDS ORDERED: SODIUM ZIRCONIUM CYCLOSILICATE (LOKELMA) 5 GM PACKET PO ONE (08:41)
[2020-05-03 08:42] LABS: URINE RBC 25.1 /uL (0-23.9); YEAST FEW (NEGATIVE)
[2020-05-03 09:01] LABS: ANISOCYTOSIS 2+; MACROCYTOSIS 0; PLATELET ESTIMATE INCREASED
[2020-05-03] MEDS: FAMOTIDINE 20 MG/50 ML IVPB 20 MG/50 ML MG IVPB SCH (09:44)
[2020-05-03] MEDS: FLUDROCORTISONE ACETATE 0.1 MG TABLET (FP) PO SCH (09:55)
[2020-05-03] MEDS ORDERED: INSULIN REGULAR HUMAN 100 UNITS/ML *VIAL IVPUSH ONE (10:04)
[2020-05-03] MEDS ORDERED: DEXTROSE 50%-WATER - 25 GM/50 ML VIAL IVPUSH ONE (10:07)
[2020-05-03] MEDS ORDERED: CALCIUM GLUCONATE 10% - 1,000 MG/10 ML VIAL IVPB ONE (10:07)
[2020-05-03] MEDS ORDERED: DEXTROSE 5%-WATER - 1,000 ML IV SCH (10:15)
[2020-05-03] MEDS ORDERED: DEXTROSE 50%-WATER 25 GM/50 ML DISP.SYRIN ONE (11:11)
[2020-05-03] MEDS: MUPIROCIN 2% TOPICAL OINTMENT FOR DECOLONIZATION NS SCH ×2 (11:18→22:40)
[2020-05-03] MEDS: FERROUS SO4 300 MG/5 ML ORAL SOLN UNIT DOSE CUPS GT SCH ×2 (11:18→21:00)
[2020-05-03] MEDS: VASOPRESSIN 40 UNITS in SODIUM CHLORIDE 98 ML IVPB SCH (11:19)
[2020-05-03 14:49] VITALS: BMI 20.7
[2020-05-03 15:22] LABS: CREATININE, URINE RANDOM < 13.0 mg/dL (30-150)
[2020-05-03] MEDS: FLUCONAZOLE 200 MG/NS 100 ML IVPB SCH (16:15)
[2020-05-03] MEDS ORDERED: PT OWN MED DRAWER 7, Y5N ONE ×2 (16:15→19:50)
[2020-05-03] MEDS: NOREPINEPHRINE NS PREMIX 16,000 MCG/500 ML BAG IVPB SCH (17:00)
[2020-05-03] MEDS: CHLORHEXIDINE GLUCONATE 4% CLEANSER FOR DECOLONIZATION TP SCH (21:02)
[2020-05-04] MEDS: NOREPINEPHRINE NS PREMIX 16,000 MCG/500 ML BAG IVPB SCH (01:41)
[2020-05-04] MEDS: PIPERACILLIN/TAZOB 2.25 GM 2.25 GM in DEXTROSE 5%-WATER - 50 ML IVPB SCH ×3 (01:41→17:42)
[2020-05-04] MEDS: HYDROCORTISONE SOD SUCCINATE 100 MG/2 ML VIAL IVPB SCH ×4 (02:17→21:36)
[2020-05-04] MEDS: HEPARIN NA (PORCINE) 5,000 UNITS/ML 1ML VIAL SQ SCH ×3 (05:25→21:36)
[2020-05-04] MEDS: INSULIN (LEVEMIR) 100 UNITS/ML UNITS SQ SCH ×2 (06:09→21:36)
[2020-05-04] MEDS: INSULIN SLIDING SCALE (NOVOLOG) 1 VIAL SQ SCH ×4 (06:10→21:38)
[2020-05-04 07:25] LABS: BASO % 0.3 % (0-2.0); HEMATOCRIT 26.3 % (32.4-45.2); HEMOGLOBIN 7.7 GM/dL (10.7-15.3); LYMPH % 1.4 % (8-40); MCH 28.5 pg (25.7-33.7); MCHC 29.4 g/dl (32.0-36.0); MEAN PLT VOLUME 10.5 fl (7.5-11.1); MONO % 3.5 % (3.8-10.2); NEUT % 94.8 % (42.8-82.8); PLATELET COUNT 479 K/MM3 (134-434); RBC 2.71 M/mm3 (3.60-5.2); RDW 19.2 % (11.6-15.6)
[2020-05-04 07:29] LABS: POTASSIUM 4.2 mmol/L (3.5-5.1)
[2020-05-04 07:31] LABS: CALCIUM 7.9 mg/dL (8.5-10.1)
[2020-05-04 07:35] LABS: CREATININE 1.8 mg/dL (0.55-1.3)
[2020-05-04 07:46] LABS: BLOOD UREA NITROGEN 128.1 mg/dL (7-18)
[2020-05-04 08:41] LABS: WHITE BLOOD COUNT 32.5 K/mm3 (4.0-10.0)
[2020-05-04] MEDS: SODIUM CHLORIDE 0.45% 1,000 ML IV SCH (08:51)
[2020-05-04] MEDS ORDERED: PT OWN MED DRAWER 7, Y5N ONE ×2 (09:02→16:35)
[2020-05-04] MEDS ORDERED: PIPERACILLIN/TAZOBACTAM 2.25 GM VIAL IVPB ONE ×2 (09:03→17:39)
[2020-05-04] MEDS ORDERED: DEXTROSE 5%-WATER - 50 ML IVPB ONE ×2 (09:03→17:39)
[2020-05-04] MEDS: AMINO ACIDS/PROTEIN HYDROLYS 30 ML LIQUID.PKT PO SCH (09:04)
[2020-05-04] MEDS: FERROUS SO4 300 MG/5 ML ORAL SOLN UNIT DOSE CUPS GT SCH ×2 (09:05→21:36)
[2020-05-04] MEDS: FLUDROCORTISONE ACETATE 0.1 MG TABLET (FP) PO SCH (09:05)
[2020-05-04] MEDS: FAMOTIDINE 20 MG/50 ML IVPB 20 MG/50 ML MG IVPB SCH (09:06)
[2020-05-04 09:58] LABS: ANISOCYTOSIS 1+; MACROCYTOSIS 1+; PLATELET ESTIMATE INCREASED
[2020-05-04] MEDS: MUPIROCIN 2% TOPICAL OINTMENT FOR DECOLONIZATION NS SCH ×3 (11:00→22:55)
[2020-05-04] MEDS: VASOPRESSIN 40 UNITS in SODIUM CHLORIDE 98 ML IVPB SCH (11:18)
[2020-05-04] MEDS: FLUCONAZOLE 200 MG/NS 100 ML IVPB SCH (16:35)
[2020-05-04] MEDS: CHLORHEXIDINE GLUCONATE 4% CLEANSER FOR DECOLONIZATION TP SCH (21:33)
[2020-05-05] MEDS ORDERED: DEXTROSE 5%-WATER - 50 ML IVPB ONE ×3 (00:30→16:43)
[2020-05-05] MEDS ORDERED: PIPERACILLIN/TAZOBACTAM 2.25 GM VIAL IVPB ONE ×3 (00:30→16:43)
[2020-05-05] MEDS: PIPERACILLIN/TAZOB 2.25 GM 2.25 GM in DEXTROSE 5%-WATER - 50 ML IVPB SCH ×3 (01:02→17:17)
[2020-05-05] MEDS: NOREPINEPHRINE NS PREMIX 16,000 MCG/500 ML BAG IVPB SCH ×3 (01:49→23:53)
[2020-05-05] MEDS: HYDROCORTISONE SOD SUCCINATE 100 MG/2 ML VIAL IVPB SCH ×4 (02:06→21:20)
[2020-05-05] MEDS: HEPARIN NA (PORCINE) 5,000 UNITS/ML 1ML VIAL SQ SCH ×3 (05:47→22:00)
[2020-05-05] MEDS: INSULIN SLIDING SCALE (NOVOLOG) 1 VIAL SQ SCH ×4 (06:01→21:42)
[2020-05-05] MEDS: INSULIN (LEVEMIR) 100 UNITS/ML UNITS SQ SCH ×2 (06:02→21:21)
[2020-05-05] MEDS: AMINO ACIDS/PROTEIN HYDROLYS 30 ML LIQUID.PKT PO SCH (08:55)
[2020-05-05] MEDS ORDERED: PT OWN MED DRAWER 7, Y5N ONE ×3 (10:24→16:31)
[2020-05-05] MEDS: SODIUM CHLORIDE 0.45% 1,000 ML IV SCH ×3 (10:29→19:53)
[2020-05-05] MEDS: FAMOTIDINE 20 MG/50 ML IVPB 20 MG/50 ML MG IVPB SCH (10:39)
[2020-05-05] MEDS: FLUDROCORTISONE ACETATE 0.1 MG TABLET (FP) PO SCH (10:40)
[2020-05-05] MEDS: FERROUS SO4 300 MG/5 ML ORAL SOLN UNIT DOSE CUPS GT SCH (10:40)
[2020-05-05] MEDS: MUPIROCIN 2% TOPICAL OINTMENT FOR DECOLONIZATION NS SCH ×2 (10:51→21:21)
[2020-05-05 14:07] LABS: BASO % 0.4 % (0-2.0); HEMATOCRIT 26.7 % (32.4-45.2); LYMPH % 1.1 % (8-40); MCH 28.7 pg (25.7-33.7); MCHC 30.1 g/dl (32.0-36.0); MEAN CELL VOLUME 95.2 fl (80-96); MEAN PLT VOLUME 10.8 fl (7.5-11.1); MONO % 1.2 % (3.8-10.2); NEUT % 97.3 % (42.8-82.8); PLATELET COUNT 436 K/MM3 (134-434); RDW 19.2 % (11.6-15.6)
[2020-05-05 14:11] LABS: WHITE BLOOD COUNT 31.5 K/mm3 (4.0-10.0)
[2020-05-05 14:34] LABS: POTASSIUM 3.4 mmol/L (3.5-5.1)
[2020-05-05 14:38] LABS: ALBUMIN 1.2 g/dl (3.4-5.0); CALCIUM 7.8 mg/dL (8.5-10.1)
[2020-05-05 14:42] LABS: CREATININE 1.8 mg/dL (0.55-1.3)
[2020-05-05 14:43] LABS: BILIRUBIN,TOTAL 0.8 mg/dL (0.2-1); TOT PROT 4.4 g/dl (6.4-8.2)
[2020-05-05 14:50] LABS: ANISOCYTOSIS 2+; MACROCYTOSIS 0; PLATELET ESTIMATE NORMAL
[2020-05-05 14:51] LABS: BLOOD UREA NITROGEN 136.4 mg/dL (7-18)
[2020-05-05] MEDS: FLUCONAZOLE 200 MG/NS 100 ML IVPB SCH (16:14)
[2020-05-05] MEDS: VASOPRESSIN 40 UNITS in SODIUM CHLORIDE 98 ML IVPB SCH (19:53)
[2020-05-05] MEDS: CHLORHEXIDINE GLUCONATE 4% CLEANSER FOR DECOLONIZATION TP SCH (21:21)
[2020-05-06] MEDS: FERROUS SO4 300 MG/5 ML ORAL SOLN UNIT DOSE CUPS GT SCH ×3 (01:22→21:01)
[2020-05-06] MEDS ORDERED: DEXTROSE 5%-WATER - 50 ML IVPB ONE ×3 (02:28→14:39)
[2020-05-06] MEDS ORDERED: PIPERACILLIN/TAZOBACTAM 2.25 GM VIAL IVPB ONE ×3 (02:28→14:39)
[2020-05-06] MEDS: HYDROCORTISONE SOD SUCCINATE 100 MG/2 ML VIAL IVPB SCH ×4 (02:51→21:00)
[2020-05-06] MEDS: PIPERACILLIN/TAZOB 2.25 GM 2.25 GM in DEXTROSE 5%-WATER - 50 ML IVPB SCH ×3 (02:51→17:20)
[2020-05-06] MEDS: HEPARIN NA (PORCINE) 5,000 UNITS/ML 1ML VIAL SQ SCH ×3 (06:32→21:01)
[2020-05-06] MEDS: INSULIN (LEVEMIR) 100 UNITS/ML UNITS SQ SCH ×2 (06:33→21:07)
[2020-05-06] MEDS: INSULIN SLIDING SCALE (NOVOLOG) 1 VIAL SQ SCH ×4 (06:33→21:12)
[2020-05-06 07:54] LABS: BASO % 0.1 % (0-2.0); HEMATOCRIT 27.5 % (32.4-45.2); HEMOGLOBIN 8.3 GM/dL (10.7-15.3); LYMPH % 1.2 % (8-40); MCH 28.8 pg (25.7-33.7); MCHC 30.2 g/dl (32.0-36.0); MEAN CELL VOLUME 95.2 fl (80-96); MEAN PLT VOLUME 10.5 fl (7.5-11.1); MONO % 2.2 % (3.8-10.2); NEUT % 96.5 % (42.8-82.8); PLATELET COUNT 478 K/MM3 (134-434); RBC 2.89 M/mm3 (3.60-5.2); RDW 18.8 % (11.6-15.6)
[2020-05-06 08:11] LABS: CALCIUM 7.9 mg/dL (8.5-10.1)
[2020-05-06 08:12] LABS: ALBUMIN 1.4 g/dl (3.4-5.0)
[2020-05-06 08:13] LABS: CREATININE 1.9 mg/dL (0.55-1.3)
[2020-05-06 08:15] LABS: BILIRUBIN,TOTAL 0.6 mg/dL (0.2-1); TOT PROT 4.6 g/dl (6.4-8.2)
[2020-05-06 08:28] LABS: WHITE BLOOD COUNT 35.8 K/mm3 (4.0-10.0)
[2020-05-06] MEDS: FAMOTIDINE 20 MG/50 ML IVPB 20 MG/50 ML MG IVPB SCH (09:08)
[2020-05-06] MEDS: FLUDROCORTISONE ACETATE 0.1 MG TABLET (FP) PO SCH (09:10)
[2020-05-06] MEDS: AMINO ACIDS/PROTEIN HYDROLYS 30 ML LIQUID.PKT PO SCH (09:10)
[2020-05-06] MEDS: VASOPRESSIN 40 UNITS in SODIUM CHLORIDE 98 ML IVPB SCH (09:12)
[2020-05-06] MEDS: MUPIROCIN 2% TOPICAL OINTMENT FOR DECOLONIZATION NS SCH (09:13)
[2020-05-06 09:18] LABS: ANISOCYTOSIS 1+; MACROCYTOSIS 0; PLATELET ESTIMATE NORMAL
[2020-05-06 10:12] LABS: BLOOD UREA NITROGEN 136.8 mg/dL (7-18)
[2020-05-06] MEDS ORDERED: PT OWN MED DRAWER 7, Y5N ONE ×3 (10:55→20:27)
[2020-05-06] MEDS: SODIUM CHLORIDE 0.45% 1,000 ML IV SCH (14:44)
[2020-05-06] MEDS: FLUCONAZOLE 200 MG/NS 100 ML IVPB SCH (15:03)
[2020-05-06] MEDS ORDERED: SODIUM CHLORIDE 0.45% 1,000 ML IV SCH (19:10)
[2020-05-06 20:39] LABS: ARTERIAL BLOOD GAS PO2 46.9 mmHg (80-100)
[2020-05-06 20:44] LABS: ALLENS TEST POSITIVE; VENT MODE A/C
[2020-05-06 20:45] LABS: VENT RATE 16
[2020-05-06 20:46] LABS: ARTERIAL BLOOD GAS pH < 6.717 (7.350-7.450)
[2020-05-06] MEDS: CHLORHEXIDINE GLUCONATE 4% CLEANSER FOR DECOLONIZATION TP SCH (21:02)
[2020-05-06] MEDS ORDERED: SODIUM BICARBONATE 8.4% 50 MEQ/50 ML DISP.SYRIN IVPUSH ONE (21:05)
[2020-05-06] MEDS: VANCOMYCIN 250 MG/5 ML ORAL SOLUTION PO SCH ×2 (21:17→22:36)
[2020-05-06] MEDS: SODIUM BICARBONATE 8.4% - 150 MEQ in DEXTROSE 5%-WATER - 950 ML IVPB SCH (23:11)
[2020-05-06 23:40] LABS: POTASSIUM 4.4 mmol/L (3.5-5.1)
[2020-05-06 23:42] LABS: CALCIUM 7.8 mg/dL (8.5-10.1); MAGNESIUM 2.7 mg/dL (1.8-2.4)
[2020-05-06 23:46] LABS: CREATININE 2.1 mg/dL (0.55-1.3)
[2020-05-06 23:53] LABS: BLOOD UREA NITROGEN 134.6 mg/dL (7-18)
[2020-05-07] MEDS ORDERED: INSULIN REGULAR HUMAN 100 UNITS/ML *VIAL* (FOR IVP) IVPUSH ONE (00:07)
[2020-05-07] MEDS ORDERED: KCL 10 MEQ IVPB 10 MEQ/100 ML INFUS.BAG IVPB SCH (00:15)
[2020-05-07] MEDS ORDERED: INSULIN REGULAR 100 UNITS in SODIUM CHLORIDE 99 ML IVPB SCH (00:15)
[2020-05-07] MEDS ORDERED: SODIUM CHLORIDE 0.45%/POT 20 MEQ/1,000 ML INFUS.BAG IV SCH (00:30)
[2020-05-07] MEDS ORDERED: DEXTROSE 5%-WATER - 50 ML IVPB ONE ×2 (02:50→08:57)
[2020-05-07] MEDS ORDERED: PIPERACILLIN/TAZOBACTAM 2.25 GM VIAL IVPB ONE ×2 (02:50→08:57)
[2020-05-07] MEDS: HYDROCORTISONE SOD SUCCINATE 100 MG/2 ML VIAL IVPB SCH ×3 (02:56→14:18)
[2020-05-07] MEDS: PIPERACILLIN/TAZOB 2.25 GM 2.25 GM in DEXTROSE 5%-WATER - 50 ML IVPB SCH ×2 (02:56→09:09)
[2020-05-07] MEDS: NOREPINEPHRINE NS PREMIX 16,000 MCG/500 ML BAG IVPB SCH (03:55)
[2020-05-07 04:18] LABS: POTASSIUM 4.1 mmol/L (3.5-5.1)
[2020-05-07 04:19] LABS: CALCIUM 7.9 mg/dL (8.5-10.1)
[2020-05-07 04:20] LABS: MAGNESIUM 2.6 mg/dL (1.8-2.4)
[2020-05-07 04:51] LABS: ALLENS TEST POSITIVE; ARTERIAL BLOOD GAS BASE EXCESS -25.2 mmol/L (-2-2); ARTERIAL BLOOD GAS PO2 68.4 mmHg (80-100)
[2020-05-07 04:52] LABS: VENT MODE A/C; VENT RATE 20
[2020-05-07 04:57] LABS: ARTERIAL BLOOD GAS pH 6.861 (7.350-7.450)
[2020-05-07] MEDS ORDERED: SODIUM BICARBONATE 8.4% 50 MEQ/50 ML DISP.SYRIN IVPUSH ONE ×3 (05:00→10:01)
[2020-05-07 05:04] LABS: BLOOD UREA NITROGEN 139.7 mg/dL (7-18); PHOSPHOROUS 9.4 mg/dL (2.5-4.9)
[2020-05-07] MEDS: SODIUM BICARBONATE 8.4% - 150 MEQ in DEXTROSE 5%-WATER - 950 ML IVPB SCH ×2 (05:16→13:01)
[2020-05-07] MEDS: HEPARIN NA (PORCINE) 5,000 UNITS/ML 1ML VIAL SQ SCH ×2 (05:16→14:17)
[2020-05-07] MEDS: VANCOMYCIN 250 MG/5 ML ORAL SOLUTION PO SCH ×2 (05:17→11:40)
[2020-05-07] MEDS: INSULIN SLIDING SCALE (NOVOLOG) 1 VIAL SQ SCH (06:27)
[2020-05-07] MEDS: VASOPRESSIN 40 UNITS in SODIUM CHLORIDE 98 ML IVPB SCH ×2 (06:32→08:04)
[2020-05-07 08:02] LABS: BASO % 0.2 % (0-2.0); EOS % 1.9 % (0-4.5); HEMATOCRIT 27.9 % (32.4-45.2); MCH 28.7 pg (25.7-33.7); MCHC 28.6 g/dl (32.0-36.0); MEAN CELL VOLUME 100.2 fl (80-96); MEAN PLT VOLUME 10.1 fl (7.5-11.1); NEUT % 89.9 % (42.8-82.8); PLATELET COUNT 401 K/MM3 (134-434); RBC 2.79 M/mm3 (3.60-5.2); RDW 19.2 % (11.6-15.6)
[2020-05-07 08:09] LABS: CALCIUM 7.9 mg/dL (8.5-10.1)
[2020-05-07 08:10] LABS: ALBUMIN 1.1 g/dl (3.4-5.0)
[2020-05-07 08:12] LABS: CREATININE 2.1 mg/dL (0.55-1.3)
[2020-05-07] MEDS: AMINO ACIDS/PROTEIN HYDROLYS 30 ML LIQUID.PKT PO SCH (08:12)
[2020-05-07 08:14] LABS: TOT PROT 3.9 g/dl (6.4-8.2)
[2020-05-07 08:15] LABS: BILIRUBIN,TOTAL 1.3 mg/dL (0.2-1)
[2020-05-07 08:36] LABS: WHITE BLOOD COUNT 33.8 K/mm3 (4.0-10.0)
[2020-05-07 08:45] LABS: POTASSIUM 4.4 mmol/L (3.5-5.1)
[2020-05-07 08:50] LABS: CALCIUM 7.6 mg/dL (8.5-10.1)
[2020-05-07] MEDS ORDERED: PT OWN MED DRAWER 7, Y5N ONE (08:56)
[2020-05-07 09:08] LABS: BLOOD UREA NITROGEN 139.9 mg/dL (7-18)
[2020-05-07] MEDS: FERROUS SO4 300 MG/5 ML ORAL SOLN UNIT DOSE CUPS GT SCH (09:09)
[2020-05-07] MEDS: FLUDROCORTISONE ACETATE 0.1 MG TABLET (FP) PO SCH (09:09)
[2020-05-07] MEDS: FAMOTIDINE 20 MG/50 ML IVPB 20 MG/50 ML MG IVPB SCH (09:09)
[2020-05-07 09:17] LABS: ARTERIAL BLOOD GAS PO2 73.6 mmHg (80-100)
[2020-05-07 09:18] LABS: ALLENS TEST POSITIVE
[2020-05-07 09:19] LABS: VENT MODE AC; VENT RATE 20
[2020-05-07 09:22] LABS: ARTERIAL BLOOD GAS pH 6.979 (7.350-7.450)
[2020-05-07 09:50] LABS: BLOOD UREA NITROGEN 135.2 mg/dL (7-18)
[2020-05-07 10:02] LABS: ANISOCYTOSIS 1+; CORRECTED WBC 30.45 K/mm3; MACROCYTOSIS 0; PLATELET ESTIMATE NORMAL
[2020-05-07] MEDS ORDERED: POTASSIUM CHLORIDE 40 MEQ in SODIUM CHLORIDE 0.45% 1,000 ML IV SCH (12:00)
[2020-05-07 13:57] LABS: POTASSIUM 5.6 mmol/L (3.5-5.1)
[2020-05-07 13:58] LABS: CALCIUM 7.7 mg/dL (8.5-10.1)
[2020-05-07 13:59] LABS: MAGNESIUM 2.3 mg/dL (1.8-2.4)
[2020-05-07] MEDS ORDERED: PHENYLEPHRINE NS PREMIX 50,000 MCG/500 ML BAG CVP SCH (14:30)
[2020-05-07 14:47] LABS: ARTERIAL BLD GAS O2 SATURATION 59.2 mmHg (95-98); ARTERIAL BLOOD GAS BASE EXCESS -24.7 mmol/L (-2-2); ARTERIAL BLOOD GAS PO2 51.8 mmHg (80-100)
[2020-05-07 14:48] LABS: ALLENS TEST POSITIVE
[2020-05-07 14:48] LABS: BLOOD UREA NITROGEN 130.1 mg/dL (7-18)
[2020-05-07 14:49] LABS: PHOSPHOROUS 9.5 mg/dL (2.5-4.9)
[2020-05-07 14:49] LABS: VENT MODE A/C; VENT RATE 20
[2020-05-07 14:50] LABS: ARTERIAL BLOOD GAS pH 6.867 (7.350-7.450)
[2020-05-07 15:22] VITALS: BP 97/60; PULSE 92; TEMP 95.1
== END 2020-05-07 18:00 | disposition expired | DRG 870 ==
LOC: JER 16:17 → JERBED 19:22 → JICU 23:15
PROVIDERS: ADMIT Internal Medicine Pulmonary Disease; ATTEND Internal Medicine Pulmonary Disease
PROC: 05HM33Z Insertion of Infusion Device into Right Internal Jugular Vein, Percutaneous Approach (ICD-10-PCS; principal; 2020-05-03)
PROC: 5A1955Z Respiratory Ventilation, Greater than 96 Consecutive Hours (ICD-10-PCS; 2020-05-03)
PROC: B543ZZA Ultrasonography of Right Jugular Veins, Guidance (ICD-10-PCS; 2020-05-03)
DX: A41.89 Other specified sepsis (principal); R65.21 Severe sepsis with septic shock; A04.72 Enterocolitis due to Clostridium difficile, not specified as recurrent; J95.851 Ventilator associated pneumonia; N17.9 Acute kidney failure, unspecified; E87.0 Hyperosmolality and hypernatremia; B49 Unspecified mycosis; J96.11 Chronic respiratory failure with hypoxia; E87.2 Acidosis; R64 Cachexia; G93.40 Encephalopathy, unspecified; J90 Pleural effusion, not elsewhere classified; G40.909 Epilepsy, unspecified, not intractable, without status epilepticus; J44.9 Chronic obstructive pulmonary disease, unspecified; E87.5 Hyperkalemia; E11.9 Type 2 diabetes mellitus without complications; D64.9 Anemia, unspecified; Z93.0 Tracheostomy status; Z85.118 Personal history of other malignant neoplasm of bronchus and lung; F20.9 Schizophrenia, unspecified; Z68.25 Body mass index [BMI] 25.0-25.9, adult; R68.0 Hypothermia, not associated with low environmental temperature
CPT/HCPCS: 36415; 36600; 71045-TC-FY; 80048; 80053; 81003; 82010; 82272; 82436; 82565; 82728; 82803; 82962; 83605; 83615; 83735; 83880; 83930; 83935; 84100; 84133; 84300; 84484; 85025; 85379; 85610; 85651; 85730; 86140; 87040; 87077; 87086; 87106; 87186; 87324; 87449; 93005; 93010; 93306-TC; 94002; 99285-25; C9803; J0131; J1100; J1644; J3480; U0003